=== PATIENT | female | born 1985 | race Caucasian/White ===

== ENCOUNTER 2023-04-14 13:18 | Outpatient (REF) | payer BC, SELFPAY ==
[2023-04-18 12:13] LABS: Age Gdln ACOG Testing Note (.); HPV Aptima Negative (Negative); IGP, Aptima HPV, rfx 16/18,45 Note (.)
== END 2023-04-14 13:19 | disposition home or self-care (01) ==
LOC: LAB 13:18
PROVIDERS: PCP Obstetrics & Gynecology; Visit Provider Obstetrics & Gynecology
DX: Z01.419 Encounter for gynecological examination (general) (routine) without abnormal findings (principal)
CPT/HCPCS: 87624; G0145

== ENCOUNTER 2024-04-20 12:58 | Outpatient (OUT) | payer BC, SELFPAY ==
[2024-04-20 13:19] LABS: Basophils Absolute Auto 0.1 10^3/uL (0.0-0.1); Basophils Percent Auto 0.8 % (0.2-2.0); Eosinophils Absolute Auto 0.1 10^3/uL (0.0-0.7); Eosinophils Percent Auto 0.6 % (0.9-7.0); Hematocrit 39.4 % (36.0-48.0); Hemoglobin 13.4 g/dL (12.0-16.0); Immature Granulocytes Abs Auto 0.02 10^3/uL (0.00-0.03); Immature Granulocytes Pct Auto 0.2 % (0.0-0.5); Lymphocytes Absolute Auto 2.7 10^3/uL (1.2-3.8); Mean Corpuscular Hemoglobin 29.6 pg (26.7-34.0); Mean Corpuscular Volume 87.2 fL (81.0-99.0); Mean Platelet Volume 9.2 fL (9.5-13.5); Monocytes Absolute Auto 0.5 10^3/uL (0.3-0.8); Neutrophils Absolute Auto 5.1 10^3/uL (1.4-6.5); Neutrophils Percent Auto 60.4 % (43.0-75.0); Platelet Count 321 10^3/uL (150-450); Red Blood Count 4.52 10^6/uL (4.20-5.40); Red Cell Distribution Width 12.3 % (11.0-15.0); White Blood Count 8.4 10^3/uL (4.0-11.0)
[2024-04-20 14:15] LABS: Free T4 0.94 ng/dL (0.76-1.46)
[2024-04-20 14:22] LABS: Thyroid Stimulating Hormone 1.341 uIU/mL (0.358-3.740)
[2024-04-20 14:23] LABS: HCG Quantitative <1 mIU/mL
[2024-04-20 19:10] LABS: Estimated Average Glucose 114 mg/dL; Glycohemoglobin A1C 5.6 % (4.5-6.2)
[2024-04-21 04:08] LABS: FSH 2.3 mIU/mL (.); Luteinizing Hormone(LH) 0.8 mIU/mL (.)
== END 2024-04-20 12:59 | disposition home or self-care (01) ==
LOC: LAB 13:00
PROVIDERS: PCP Obstetrics & Gynecology; Visit Provider Obstetrics & Gynecology
DX: E28.2 Polycystic ovarian syndrome (principal); N89.8 Other specified noninflammatory disorders of vagina; N93.9 Abnormal uterine and vaginal bleeding, unspecified
CPT/HCPCS: 36415; 82626; 82627; 83001; 83002; 83036; 84439; 84443; 84702; 85025

== ENCOUNTER 2024-04-22 11:01 | Outpatient (OUT) | payer BC, SELFPAY ==
--- NOTE | 2024-04-22 11:02 | US_ITS ---
[address] [address] Patient Name: ETHEL BRYANT MRN: [id number] date: 1985 Sex: F Assigned Patient Location: [facility] Current Patient Location: Accession/Order Number: [id number] Exam Date: 04/22/2024 11:05 Report Date: 04/23/2024 04:35 At the request of: MYRIAM STAPLETON Procedure: US pelvis w/ transvaginal EXAMINATION: US pelvis w/ transvaginal HISTORY: POLYCYSTIC OVARIAN SYNDROME COMPARISON: Ultrasound pelvis 07/27/2019 TECHNIQUE: Transabdominal and/or transvaginal sonographic examination was performed as indicated by examination type. FINDINGS: UTERUS: Normal size and appearance. Uterus size: 9.8 x 4.6 x 5.3 cm ENDOMETRIUM: Normal homogeneous appearance. IUD within endometrial cavity. Endometrial thickness: 6 mm RIGHT OVARY: Normal size and appearance. Duplex Doppler demonstrates normal waveform and flow; resistive index 0.5. Ovary size: 3.8 x 2.1 x 1.7 cm LEFT OVARY: Normal size and appearance. Duplex Doppler demonstrates normal waveform and flow; resistive index 0.6. Ovary size: 2.7 x 1.3 x 1.8 cm CUL-DE-SAC: Unremarkable. No significant free fluid. BLADDER: Unremarkable. OTHER: None. US/US pelvis w/ transvaginal IMPRESSION: 1. No ultrasound findings to suggest polycystic ovarian syndrome. 2. IUD within endometrial cavity. Electronically authenticated by: CRIS YEE Date: 04/23/2024 04:35
--- OUTSIDE RECORDS SUMMARY | 2024-04-22 11:16 | XMS_ITS | CCD ---
Author Organization [facility] CliniSynh Care Team Providers Care Major Appliance Assembly Supervisor Name Role Phone PIETER, DR MIGUEL Consulting Unavailable PIETER, DR MIGUEL Admitting Unavailable PIETER, DR MIGUEL Attending Unavailable MARIA DEL ROSARIO, DR DAVENPORT Primary Care Unavailable PIETER, DR MIGUEL Admitting Unavailable PIETER, DR MIGUEL Attending Unavailable MARIA DEL ROSARIO, DR DAVENPORT Primary Care Unavailable PIETER, DR MIGUEL Consulting Unavailable IPETER, DR MIGUEL Admitting Unavailable PIETER, DR MIGUEL Attending Unavailable MARIA DEL ROSARIO, DR DAVENPORT Primary Care Unavailable PIETER, DR MIGUEL Consulting Unavailable Maria Del Rosario [facility] Primary Care Provider [phone] SHAMAR RAZA Admitting Unavailable SHAMAR RAZA Attending Unavailable MARIA DEL ROSARIO [facility] Primary Care Unavailable SHAMAR RAZA Attending Unavailable SHAMAR RAAZ Referring Unavailable MARIA DEL ROSARIO [facility] Primary Care Unavailable ELICIA MCKENZIE Attending Unavailable MARIA DEL ROSARIO [facility] Primary Care Unavailable Amara TISSUE COORDINATOR-HAIR ASSISTANTDelgado Unavailable Maria Del Rosario [facility] Primary Care Provider Amara TISSUE COORDINATOR-HAIR ASSISTANTDelgado Unavailable DELGADO CARDONA Attending Unavailab MACRINA Parker Attending Unavailable MACRINA MONTES Attending Unavailable MYRIAM STAPLETON Referring Unavailable MACRINA MONTES Attending Unavailable MYRIAM STAPLETON Attending Unavailable DELGADO CARDONA Attending Unavailab NONA Barrientos Attending Unavailable MACRINA MONTES Attending Unavailable MACRINA MONTES Attending Unavailable DELGADO CARDONA Attending Unavailab NONA Barrientos Attending Unavailable MACRINA MONTES Attending Unavailable DELGADO CARDONA Attending Unavailab MACRINA Parker Attending Unavailable DELGADO CARDONA Attending Unavailab MACRINA Parker Attending Unavailable DELGADO CARDONA Attending Unavailab warren MIXNONA Attending Unavailable DELGADO CARDONA Attending Unavailab MACRINA Parker Attending Unavailable DELGADO CARDONA Attending Unavailab MYRIAM Luis Attending Unavailable Allergies Allergy Classification Reported Allergen(s) Allergy Type Date of Onset Reaction(s) Facility (1 source) Bacitracin / Neomycin / Polymyxin B Drug Allergy 2 [facility] Repository (2 sources) bacitracin / neomycin / polymyxin b; Translations: [NEOMYCIN-BACIT RACIN-POLYMYXIN ] Drug Allergy 6 Rash [facility] (8 sources) Neomycin Drug Allergy 2 Hives, Itching [facility] Work Phone: (1 source) Neomycin-Bacitr acin Zn-Polymyx Drug Intolerance 6 Rash [facility] Healthcare Medications Current Medications Medication Drug Class(es) Dates Sig (Normalized) Sig (Original) cetirizine hydrochloride 10 mg oral tablet (3 sources) Histamine-1 Receptor Antagonist Start: 02-25-2024 End: 08-23-2024 take 1 tablet by mouth once daily cetirizine (ZyrTEC) 10 MG tablet Indications: Rash Take 1 tablet (10 mg) by mouth Daily 30 tablet 02/25/2024 03/16/2024 Discontinued (Therapy completed) copper 313 mg drug implant (9 sources) Copper-containing Intrauterine Device copper (Paragard) IUD by Intrauterine route 1 (one) time. Active copper (PARAGARD T 380A) 380 square mm intrauterine device IUD by intrauterine route. 0 Active desogestrel 0.15 mg / ethinyl estradiol 0.03 mg oral tablet (8 sources) Progestin, Estrogen Start: 09-29-2023 take 1 tablet by mouth once daily, then take 1 tablet by mouth once daily desogestrel-ethinyl estradiol (Apri) 0.15-30 MG-MCG tablet Indications: Hormone imbalance Take 1 tablet by mouth Daily for 28 days Take 1 tablet by mouth daily 28 tablet 11 09/29/2023 Active lamoTRIgine 150 mg oral tablet (11 sources) Mood Stabilizer, Anti-epileptic Agent Start: 01-05-2024 End: 05-14-2024 take 1 tablet by mouth in the morning lamoTRIgine (LaMICtal) 150 MG tablet Indications: Bipolar disorder in partial remission, most recent episode unspecified type (CMS/HCC) Take 1 tablet (150 mg) by mouth in the morning and 1 tablet (150 mg) before bedtime. 60 tablet 2 04/14/2024 05/14/2024 Active Start: 02-19-2023 take 1 tablet by mango th in the morning, then take 1 tablet by mouth at bedtime lamoTRIgine (LaMICtal) 150 mg tablet Take 1 tablet (150 mg total) by mouth in the morning and 1 tablet (150 mg total) before bedtime. 0 02/19/2023 Active lisdexamfetamine dimesylate 30 mg oral capsule (12 sources) Central Nervous System Stimulant Start: 04-14-2024 End: 05-14-2024 take 1 capsule by mouth in the morning lisdexamfetamine (Vyvanse) 30 MG capsule Indications: Moderate binge-eating disorder Take 1 capsule (30 mg) by mouth in the morning. 30 capsule 04/14/2024 05/14/2024 Active Start: 03-16-2024 End: 04-15-2024 take 1 capsule by mouth in the morning lisdexamfetamine (Vyvanse) 40 MG capsule Indications: Moderate binge-eating disorder Take 1 capsule (40 mg) by mouth in the morning. 30 capsule 03/16/2024 04/14/2024 Discontinued Start: 02-02-2024 End: 03-16-2024 take 1 capsule by mouth in the morning lisdexamfetamine (Vyvanse) 30 MG capsule Indications: Binge eating disorder Take 1 capsule (30 mg) by mouth in the morning. 30 capsule 02/02/2024 03/16/2024 Discontinued lurasidone hydrochloride 40 mg oral tablet (11 sources) Atypical Antipsychotic Start: 12-01-2023 End: 05-14-2024 take 1 tablet by mouth at mealtime lurasidone (Latuda) 40 MG tablet Indications: Bipolar disorder, current episode mixed, moderate (CMS/HCC) Take 1 tablet (40 mg) by mouth in the evening. Take with meals 30 tablet 2 04/14/2024 05/14/2024 Active Start: 10-16-2020 take 1 tablet by mango th once daily LATUDA 40 mg tablet Take 1 tablet (40 mg total) by mouth nightly. 0 10/16/2020 Active polyethylene glycol 3350 170 00 mg powder for oral solution (9 sources) Osmotic Laxative polyethylene gl ycol, PEG, 3350 (Glycolax) 17 GM/SCOOP powder Take 34 g by mouth if needed Active polyethylene gly col (GLYCOLAX) 17 gram/dose powder Take 17 g by mouth in the morning. 0 Active triamcinolone acetonide 1 mg/ml topical cream (3 sources) Corticosteroid Start: 02-25-2024 End: 03-16-2024 triamcinolone (Kenalog) 0.1 % cream Indications: Rash Apply topically 2 (two) times a day 60 g 02/25/2024 03/16/2024 Discontinued (Therapy completed) Problems Active Problems Problem Classification Problem Date Documented Da te Episodic/Chronic Adjustment disorders (8 sources) Adjustment disorder; Translations: [Adjustment disorder, unspecified] Onset: 02-25-2024 02-25-2024 Chronic Anxiety disorders (8 sources) Panic attack; Translations: [Panic disorder [episodic paroxysmal anxiety]] Onset: 10-15-2022 10-15-2022 Chronic Miscellaneous mental health disorders (20 sources) Binge eating disorder; Translations: [Binge eating disorder] Onset: 10-30-2023 10-30-2023 Chronic Mood disorders (14 sources) Bipolar disorder; Translations: [Bipolar disorder, unspecified] Onset: 10-15-2022 10-15-2022 Chronic Other diseases of veins and lymphatics (9 sources) Venous hypertension; Translations: [Chronic venous hypertension (idiopathic) without complications of unspecified lower extremity] Onset: 01-08-2021 01-08-2021 Chronic Other endocrine disorders (4 sources) Endocrine disorder, unspecified; Translations: [ENDOCRINE DISORDER UNSPECIFIED] Onset: 12-13-2021 Episodic Other gastrointestinal disorders (8 sources) Chronic constipation; Translations: [Other constipation] Onset: 02-25-2024 02-25-2024 Episodic Other nervous system disorders (8 sources) Difficulty walking; Translations: [Difficulty in walking, not elsewhere classified] Onset: 02-25-2024 02-25-2024 Chronic Residual codes; unclassified (4 sources) Decreased libido; Translations: [DECREASED LIBIDO] Onset: 11-07-2021 Episodic Residual codes; unclassified (1 source) Family history of malignant neoplasm of digestive organs; Translations: [Family history of malignant neoplasm of digestive organs] Onset: 06-26-2023 Episodic Unclassified (1 source) family history of colon cancer Onset: 06-26-2023 Viral infection (8 sources) Plantar wart of right foot; Translations: [Plantar wart] Onset: 02-25-2024 02-25-2024 Episodic Past or Other Problems Problem Classification Problem Date Documented Date Episodic/Chronic Contraceptive and procreative management (8 sources) Intrauterine contraceptive device in situ; Translations: [Presence of (intrauterine) contraceptive device] Onset: 08-25-2023 08-25-2023 Episodic Immunizations and screening for infectious disease (1 source) Encounter for screening for human papillomavirus (HPV); Translations: [ENC SCREENING HUMAN PAPILLOMAVIRUS] Onset: 08-01-2021 Episodic Other aftercare (8 sources) Taking high risk medication; Translations: [Other shelter (current) drug therapy] Onset: 10-15-2022 10-15-2022 Episodic Other endocrine disorders (8 sources) Disorder of endocrine system; Translations: [Endocrine disorder, unspecified] Onset: 08-25-2023 08-25-2023 Episodic Other female genital disorders (8 sources) Vaginal dryness; Translations: [Other specified noninflammatory disorders of vagina] Onset: 08-25-2023 08-25-2023 Episodic Other screening for suspected conditions (not mental disorders or infectious disease) (4 sources) Encounter for screening for malignant neoplasm of cervix; Translations: [ENC SCREENING MALIG NEOPLASM CERV] Onset: 07-31-2021 Episodic Other skin disorders (8 sources) Disorder of sweat gland; Translations: [Eccrine sweat disorder, unspecified] Onset: 08-25-2023 08-25-2023 Episodic Residual codes; unclassified (9 sources) History of surgical procedure on vein; Translations: [Other specified postprocedural states] Onset: 02-23-2021 02-23-2021 Episodic Varicose veins of lower extremity (9 sources) Varicose veins of lower limb co-occurrent with edema; Translations: [Varicose veins of left lower extremity with other complications] Onset: 10-23-2020 10-23-2020 Episodic Results Test Name Value Interpretation Reference Range Facility HCG ( test) Ql (U)o n 06-26-2023 Beta HCG ( test) Ql (U) Negative Normal NEG [facility] Comment on above: Performed By: #### 2 106-3 #### [facility] ([id number]) [address] [facility] [place] [address] BI MAMMOGRAM SCREENING TOMOS YNTHESIS BILATERALon 04-29-2023 BI MAMMOGRAM SCREENING TOMOSYNTHESIS BILATERAL This is a summary report. The complete report is available in the patient's medical record. If you cannot access the medical record, please contact the sending organization for a detailed fax or copy. EXAMINATION: BI MAMMOGRAM SCREENING TOMOSYNTHESIS BILATERAL CLINICAL HISTORY: screening COMPARISON: There are no previous mammograms available for comparison. RESULT: Digital mammography and 3D tomosynthesis of bilateral breasts was performed. There are scattered areas of fibroglandular density. There is no suspicious mass, asymmetry, architectural distortion, or calcification. IMPRESSION: BIRADS 1 - Negative. Follow-up: Routine Screening Mamm . Board Certified Radiologists. Accredited by the ACR and FDA. MAMMOGRAPHY IS VERY IMPORTANT TO YOUR HEALTH. THE [employer] GUIDELINES RECOMMEND THAT WOMEN 40 YEARS OF AGE AND OLDER SHOULD HAVE A MAMMOGRAM EVERY YEAR. A REMINDER LETTER WILL BE SENT AT THE APPROPRIATE TIME. THIS FACILITY UTILIZES A REMINDER SYSTEM TO ENSURE ALL PATIENTS RECEIVE REMINDER NOTIFICATIONS AT THE APPROPRIATE TIME BASED ON THE RECOMMENDATIONS OF THIS EXAM. THIS INCLUDES REMINDERS FOR ROUTINE SCREENING MAMMOGRAMS, DIAGNOSTIC MAMMOGRAMS IN WHICH THE PATIENT IS ASKED TO RETURN FOR ADDITIONAL VIEWS, OR OTHER BREAST IMAGING INTERVENTIONS WHEN APPROPRIATE. THE PATIENT WILL BE PLACED IN THE APPROPRIATE REMINDER SYSTEM INCLUDING A REMINDER AT THE APPROPRIATE TIME FOR ANY PENDING ADDITIONAL VIEWS. TRANSCRIBED BY: ELECTRONICALLY SIGNED BY: Jacob Isaac MD Normal Not Available CORTISOL FREE, SERUMon 12-21 Cortisol, Free Dialysis, LCMS 1.06 ug/dL Normal [facility] Comment on above: Result Comment: Thes e tests were developed and their performance characteristics determined by [facility]. They have not been cleared or approved by the Food and Drug Administration. Reference Range: 8 AM 0.10 - 1.20 4 PM 0.042 - 0.872 Performed By: #### F RECORT #### [facility] [address] [place] [address] Dr. Lawanda Bentley VIT D 1 25 DIHYDROXYon 12-19 Calcitriol(1,25 di-OH Vit D) 72.9 pg/mL Normal 24.8-81.5 [facility] Comment on above: Result Comment: Pl ease note reference interval change Performed By: #### V [id number] #### [facility] [address] [place] [address] Dr. Lawanda Bentley INSULINon 12-14-2021 Insulin 20.1 uIU/mL Normal 2.6-24.9 [facility] Comment on above: Performed By: #### F RECORT #### [facility] [address] [place] [address] Dr. Lawanda Bentley GLUCOSE BLOODon 12-13-2021 Glucose [Mass/Vol] 107 mg/dL Critically high 74-106 T [facility] Comment on above: Performed By: #### G SHELIA #### [facility] [address] [place] [address] Dr. Lawanda Bentley GLYCOHEMOGLOBIN A1Con 2021 ADA RECOMMENDATION SEE BELOW Normal [facility] Comment on above: Result Comment: ADA RECOMMENDED LIMIT 4.0 - 6.0 ADA THERAPEUTIC TARGET < 7.0 ACTION SUGGESTED > 7.0 Performed By: #### A 1C #### [facility] [address] [place] [address] Dr. Lawanda Bentley Glucose [Mass/Vol] 108 mg/dL Normal [facility] Comment on above: Performed By: #### A 1C #### [facility] [address] [place] [address] Dr. Lawanda Bentley HbA1c (Bld) [Mass fraction] 5.4 % Normal 4.5-6.2 [facility] Comment on above: Performed By: #### A 1C #### [facility] [address] [address] [address] Lawanda Bentley TESTOSTERONE, FREE,DIRECT, T OTALon 11-10-2021 Free Testosterone(Direct) 4.0 pg/mL Normal 0.0-4.2 [facility] Comment on above: Result Comment: Perf ormed at: BN Performed By: #### T ESTFRD #### [facility] [address] [address] [address] Lawanda Bentley Testosterone [Mass/Vol] 40 ng/dL Normal 8-60 [facility] Comment on above: Result Comment: Perf ormed at: CB Performed By: #### T ESTFRD #### [facility] [address] [place] [address] Dr. Lawanda Bentley ESTRONEon 11-09-2021 Estrone, Serum 118 pg/mL Normal 27-231 [facility] Comment on above: Result Comment: Rang e Adult (Premenopausal) 27 - 231 Menstrual Cycle (1-10 days) 19 - 149 Menstrual Cycle (11-20 days) 32 - 176 Menstrual Cycle (21-30 days) 37 - 200 Performed By: #### E STRONE #### [facility] [address] [place] [address] Dr. Lawanda Bentley VIT D 1 25 DIHYDROXYon 11-09 Calcitriol(1,25 di-OH Vit D) 98.8 pg/mL Critically high 19.9-79.3 [facility] Comment on above: Result Comment: Ef fective November 12, 2021 Calcitriol(1,25 di-OH Vit D) reference interval will be changing to: pg/mL . 0 - 6 months: 44.3 - 212.9 7 months - 1 year: 40.3 - 112.4 >1 year: 24.8 - 81.5 Performed By: #### V [id number] #### [facility] [address] [place] [address] Dr. Lawanda Bentley CORTISOLon 11-08-2021 Cortisol 8.9 ug/dL Normal [facility] Comment on above: Result Comment: Brent isol AM 6.2 - 19.4 Cortisol PM 2.3 - 11.9 Performed By: #### F RECORT #### [facility] [address] [place] [address] Dr. Lawanda Bentley DHEA-SULFATEon 11-08-2021 DHEA-Sulfate 415.0 ug/dL Critically high 57.3-279.2 [facility] Comment on above: Performed By: #### D DANE #### [facility] [address] [place] [address] Dr. Lawanda Bentley ESTRADIOLon 11-08-2021 Estradiol 87.8 pg/mL Normal [facility] Comment on above: Result Comment: Adul t Female: Follicular phase 12.5 - 166.0 Ovulation phase 85.8 - 498.0 Luteal phase 43.8 - 211.0 Postmenopausal <6.0 - 54.7 1st trimester 215.0 - >4300.0 Shell ECLIA methodology Performed By: #### E STRADI #### [facility] [address] [place] [address] Dr. Lawanda Bentley PROGESTERONEon 11-08-2021 Progesterone 2.5 ng/mL Normal [facility] Comment on above: Result Comment: Foll icular phase 0.1 - 0.9 Luteal phase 1.8 - 23.9 Ovulation phase 0.1 - 12.0 First trimester 11.0 - 44.3 Second trimester 25.4 - 83.3 Third trimester 58.7 - 214.0 Postmenopausal 0.0 - 0.1 Performed By: #### F RECORT #### [facility] [address] [place] [address] Dr. Lawanda Bentley SEX HORMONE-BINDING GLOBULIN on 11-08-2021 Sex Horm Binding Glob, Serum 27.5 nmol/L Normal 24.6-122.0 [facility] Comment on above: Performed By: #### S EXHBG #### [facility] [address] [place] [address] Dr. Lawanda Bentley PAP ACOG PANEL 2: 30 to 65on 08-03-2021 . . Normal [facility] Comment on above: Result Comment: Perf ormed at: WB Performed By: #### F RECORT #### [facility] [address] [place] [address] Dr. Lawanda Bentley Age Gdln ACOG Testing 30-65 Normal [facility] Comment on above: Performed By: #### F RECORT #### [facility] [address] [place] [address] Dr. Lawanda Bentley DIAGNOSIS: Comment Normal [facility] Comment on above: Result Comment: NEGA TIVE FOR INTRAEPITHELIAL LESION OR MALIGNANCY. Performed at: WB Performed By: #### F RECORT #### [facility] [address] [place] [address] Dr. Lawanda Bentley HPV Aptima Negative Normal Negative [facility] Comment on above: Result Comment: This nucleic acid amplification test detects fourteen high-risk HPV types (16,18,31,33,35,39,45,51,52,56,58,59,66,68) without differentiation. Performed at: =G Performed By: #### F RECORT #### [facility] [address] [place] [address] Dr. Lawanda Bentley Methodology: Comment Normal [facility] Comment on above: Result Comment: This liquid based ThinPrep(R) pap test was screened with the use of an image guided system. Performed at: WB Performed By: #### F RECORT #### [facility] [address] [place] [address] Dr. Lawanda Bentley Note: Comment Normal [facility] Comment on above: Result Comment: The Pap smear is a screening test designed to aid in the detection of premalignant and malignant conditions of the uterine cervix. It is not a diagnostic procedure and should not be used as the sole means of detecting cervical cancer. Both false-positive and false-negative reports do occur. . Performed at: WB Performed By: #### F RECORT #### [facility] [address] [address] [address] Lawanda Bentley Performed by: Comment Normal [facility] Comment on above: Result Comment: Ada Bucio, Countersinker (ASCP) Performed at: WB Performed By: #### F RECORT #### [facility] [address] [address] [address] Lawanda Bentley Specimen adequacy: Comment Normal [facility] Comment on above: Result Comment: Sati sfactory for evaluation. Endocervical and/or squamous metaplastic cells (endocervical component) are present. Performed at: WB Performed By: #### F RECORT #### [facility] [address] [place] [address] Dr. Lawanda Bentley Vital Signs Date Time Vital Sign Value Performing Clinician Khalida smith 04-14-2024 11:04-0500 Body mass index (BMI) [Ratio] 32.42 kg/m2 Delgado Brenda-Nossek TISSUE COORDINATOR-HAIR ASSISTANT Work Phone: [facility] 04-14-2024 11:04-0500 Body weight 83.01 kg Delgado Brenda-Nossek TISSUE COORDINATOR-HAIR ASSISTANT Work Phone: [facility] 04-14-2024 11:04-0500 Diastolic blood pressure 86 mm[Hg] Delgado Brenda-Nossek TISSUE COORDINATOR-HAIR ASSISTANT Work Phone: [facility] 04-14-2024 11:04-0500 Systolic blood pressure 134 mm[Hg] Delgado Brenda-Nossek TISSUE COORDINATOR-HAIR ASSISTANT Work Phone: [facility] 03-16-2024 09:29-0400 Body mass index (BMI) [Ratio] 32.77 kg/m2 Delgado Brenda-Nossek TISSUE COORDINATOR-HAIR ASSISTANT Work Phone: [facility] 03-16-2024 09:29-0400 Body weight 83.92 kg Delgado Brenda-Nossek TISSUE COORDINATOR-HAIR ASSISTANT Work Phone: [facility] 03-16-2024 09:29-0400 Diastolic blood pressure 84 mm[Hg] Delgado Brenda-Nossek TISSUE COORDINATOR-HAIR ASSISTANT Work Phone: [facility] 03-16-2024 09:29-0400 Heart rate 73 /min Delgado Brenda-Nossek TISSUE COORDINATOR-HAIR ASSISTANT Work Phone: [facility] 03-16-2024 09:29-0400 Systolic blood pressure 132 mm[Hg] Delgado Brenda-Nossek TISSUE COORDINATOR-HAIR ASSISTANT Work Phone: [facility] Encounters Encounter Date Encounter Type Care Provider Facility Start: 04-20-2024 End: 04-20-2024 ambulatory MYRIAM STAPLETON Not Available Start: 04-14-2024 End: 04-14-2024 ambulatory DELGADO Hurd BRENDA-NOSSEK Not Available Start: 04-14-2024 End: 04-14-2024 Office outpatient visit 40 minutes Delgado Hurd Brenda-Nossek TISSUE COORDINATOR-HAIR ASSISTANT Work Phone: [facility] Comment on above: Bipolar disorder in partial remission, most recent episode unspecified type (CMS/HCC); Bipolar disorder, current episode mixed, moderate (CMS/HCC); Moderate binge-eating disorder Start: 03-18-2024 End: 03-18-2024 Bamboo flowsheet Macrina S [place] CASE REPAIRER-S Work Phone: [facility] Start: 03-18-2024 End: 03-18-2024 Bamboo flowsheet Macrina S Simon CASE REPAIRER-S Work Phone: [facility] Start: 03-18-2024 End: 03-18-2024 ambulatory MACRINA S SIMON Not Available Start: 03-16-2024 End: 03-16-2024 Bamboo flowsheet Delgado M Brenda-Nossek TISSUE COORDINATOR-HAIR ASSISTANT Work Phone: [facility] Start: 03-16-2024 End: 03-16-2024 Bamboo flowsheet Delgado Hurd Brenda-Nossek TISSUE COORDINATOR-HAIR ASSISTANT Work Phone: [facility] Start: 03-16-2024 End: 03-16-2024 Office outpatient visit 40 minutes Delgado Hurd Brenda-Nossek TISSUE COORDINATOR-HAIR ASSISTANT Work Phone: [facility] Comment on above: Moderate binge-eatin g disorder (Primary Dx) Start: 03-16-2024 End: 03-16-2024 ambulatory DELGADO Hurd BRENDA-NOSSEK Not Available Start: 02-25-2024 End: 02-25-2024 ambulatory NONA MIX Not Available Start: 02-02-2024 End: 02-02-2024 ambulatory DELGADO Vannessa BRENDA-NOSSEK Not Available Start: 01-19-2024 End: 01-19-2024 ambulatory MACRINA S SIMON Not Available Start: 01-05-2024 End: 01-05-2024 ambulatory DELGADO Vannessa BRENDA-NOSSEK Not Available Start: 12-01-2023 End: 12-01-2023 ambulatory DELGADO M BRENDA-NOSSEK Not Available Start: 11-13-2023 End: 11-13-2023 ambulatory MACRINA S SIMON Not Available Start: 11-10-2023 End: 11-10-2023 ambulatory NONA MIX Not Available Start: 10-30-2023 End: 10-30-2023 ambulatory DELGADO M BRENDA-NOSSEK Not Available Start: 10-29-2023 End: 10-29-2023 ambulatory MACRINA S SIMON Not Available Start: 10-15-2023 End: 10-15-2023 ambulatory MACRINA S SIMON Not Available Start: 10-07-2023 End: 10-07-2023 ambulatory NONA MIX Not Available Start: 09-18-2023 End: 09-18-2023 ambulatory DELGADO Vannessa BRENDA-NOSSEK Not Available Start: 08-25-2023 End: 08-25-2023 ambulatory MYRIAM STAPLETON Not Available Start: 08-06-2023 End: 08-06-2023 ambulatory MACRINA S SIMON Not Available Start: 07-07-2023 End: 07-07-2023 ambulatory MACRINA S SIMON Not Available Start: 07-03-2023 Telephone encounter Shara Aguilera [facility] General Surgery Start: 06-27-2023 End: 06-27-2023 Evaluation and management of inpatient ELICIA MCKENZIE [facility] Start: 06-26-2023 End: 06-27-2023 Evaluation and management of inpatient SHAMAR RAZA [facility] Start: 06-20-2023 End: 06-20-2023 ambulatory DELGADO Vannessa BRENDA-NOSSEK Not Available Start: 05-26-2023 End: 05-26-2023 ambulatory MACRINA MONTES Not Available Start: 04-29-2023 End: 04-29-2023 ambulatory MYRIAM STAPLETON Not Available Start: 04-29-2023 End: 04-29-2023 ambulatory MACRINA MONTES Not Available Start: 12-13-2021 End: 12-14-[address] MYRIAM STAPLETON Facility:[facility] Start: 11-07-2021 End: 11-08-[address] MYRIAM STAPLETON Facility:[facility] Start: 07-31-2021 End: 07-31-[address] MYRIAM STAPLETON Facility:[facility] Procedures Date Procedure Procedure Detail Performing Clinician Start: 03-18-2024 End: 03-18-2024 Psychotherapy w/patient 60 minutes Moderate binge-eating disorder Macrina Montes CASE REPAIRER-S Work Phone: Comment on above: Moderate binge-eatin g disorder; Bipolar affective disorder, remission status unspecified ([facility]) Start: 04-29-2023 Mammography [facility]gado Sherwood [facility] Work Phone: Start: 04-14-2023 Microscopic observat ion [Identifier] in Cervix by Cyto stain Delgado Cardona [facility] Work Phone: Plan of Treatment Date Care Activity Detail Author Start: 04-14-2028 Screening for malign ant neoplasm of cervix [facility] Start: 12-06-2024 Influenza vaccination Influenza Vacc ine (#1) [facility] Comment on above: Postponed from 02/07 (Patient Refused) Start: 06-26-2024 Adult BMI Screening [facility] Screen [facility] Start: 06-26-2024 Tobacco Screening Tobacco Screening [facility] Start: 06-14-2024 End: 06-14-2024 Patient encounter procedure 06/14/2024 9:30 AM EST Office Visit [facility] [address] [facility] [address] [place] [address] Delgado Cardona TISSUE COORDINATOR-[facility] [address] [facility] [address] [place] [address] [facility] Start: 04-29-2024 Screening for malign ant neoplasm of breast Mammogram [facility] Start: 04-14-2024 End: 04-14-2024 Patient encounter procedure 04/14/2024 11:00 AM EST Office Visit [facility] [address] [facility] [address] [place] [address] Delgado Cardona, TISSUE COORDINATOR-HAIR ASSISTANT [address] [facility] [address] [place] [address] [facility] Start: 04-14-2024 End: 04-14-2024 Telemedicine consultation with patient 04/14/2024 9:00 AM EST Telemedicine [facility] [address] [place] [place] [address] Macrina Montes, CASE REPAIRER-S [address] [place] [facility] [place] [address] [facility] Start: 03-18-2024 End: 03-18-2024 Telemedicine consultation with patient [facility] Comment on above: Arrived Start: 03-16-2024 End: 03-16-2024 Patient encounter procedure 03/16/2024 9:30 AM EDT Office Visit [facility] [address] [facility] [address] [place] [address] Delgado Cardona, TISSUE COORDINATOR-HAIR ASSISTANT [address] [facility] [address] [place] [address] Arrived [facility] Comment on above: Arrived Start: 02-07-2023 COVID-19 Vaccine ( season) COVID-19 Vaccine ( season) [facility] Start: 02-07-2023 Influenza vaccination Influenza Vacc ine [facility] Start: 2004 Screening for malign ant neoplasm of cervix Pap Smear [facility] Start: 2002 DTaP,Tdap and Td Vaccines (1 - Tdap) DTaP,Tdap and Td Vaccines (1 - Tdap) [facility] Start: 2001 Adult BMI Follow Up Plan Adult BMI Follow Up Plan [facility] Start: 1995 Depression Screening Depression Scre ening [facility] Immunizations Immunization Date Immunization Notes Care Provider Michael castellanos 03-31-2020 influenza, injectabl e, quadrivalent, preservative free Delgado Brenda-Nossek TISSUE COORDINATOR-HAIR ASSISTANT Work Phone: [facility] 03-31-2020 influenza virus vaccine, unspecified formulation Shara Aguilera CMA [facility] 04-08-2017 influenza, injectabl e, quadrivalent, contains preservative Delgado Brenda-Nossek TISSUE COORDINATOR-HAIR ASSISTANT Work Phone: [facility] 04-04-2016 influenza, injectabl e, quadrivalent, preservative free Delgado Brenda-Nossek TISSUE COORDINATOR-HAIR ASSISTANT Work Phone: [facility] Healthcare Payers Date Payer Category Payer [facility] [id number] 2021 Unknown [id number]. [id number] 1983 Unknown [id number] 2.16.840.1.301297.3.579. 2.593 1983 Unknown [id number] 2.16.840.1.724955.3.579. 2.593 1983 Unknown [id number] 2.16.840.1.325687.3.579. 2.593 1983 Unknown [id number] .840.1.484833.3.579. 2.1285 1983 Unknown [id number] 2.840.1.059666.3.579. 2.1285 1983 Unknown [id number] 2.840.1.989190.3.579. 2.1285 1983 Unknown [id number] 2.840.1.313631.3.579. 2.1285 1983 Unknown [id number] 840.1.385122.3.579. 2.1258 1983 Unknown [id number] 20.1.929169.3.579. 2.1258 1983 Unknown [id number] 07.25.830.1.843625.3.579. 2.1258 1983 Unknown [id number] 07.25.830.1.794785.3.579. 2.1258 1983 Unknown [id number] .1.413241.3.579. 2.1258 1983 Unknown [id number] 07.25.830.1.792749.3.579. 2.1258 1983 Unknown [id number] 07.25.830.1.614967.3.579. 2.1258 1983 Unknown [id number] 07.25.830.1.474965.3.579. 2.1258 1983 Unknown [id number] 840.1.889665.3.579. 2.1258 1983 Unknown [id number] 840.1.818409.3.579. 2.1258 1983 Unknown [id number] 840.1.921219.3.579. 2.1258 1983 Unknown [id number] 840.1.969422.3.579. 2.1259 1983 Unknown [id number] 2.16.840.1.722959.3.579. 2.1258 1983 Unknown [id number] 2.16.840.1.076958.3.579. 2.1258 1983 Unknown [id number] 2.16.840.1.386595.3.579. 2.1258 1983 Unknown [id number] 2.16.840.1.486538.3.579. 2.1258 1983 Unknown [id number] 2.16.840.1.634753.3.579. 2.1258 1983 Unknown [id number] 2.16.840.1.765969.3.579. 2.1258 1983 Unknown [id number] 2.16.840.1.107036.3.579. 2.1258 1983 Unknown [id number] 2.16.840.1.626749.3.579. 2.1258 1983 Unknown [id number] 2.16.840.1.502372.3.579. 2.1258 1983 Unknown [id number] 2.16.840.1.847672.3.579. 2.1258 1983 Unknown [id number] 2.16.840.1.172650.3.579. 2.9 1959 Unknown [id number] 1959 Unknown [id number] Social History Date Type Detail Facility Start: 05-19-2023 End: 12-01-2023 Tobacco smoking status ARIS Ex-smoker [facility] [employer] Work Phone: Start: 06-09-2001 End: 10-07-2008 History of tobacco use [email or web address] Start: 06-09-2001 End: 10-07-2008 History of tobacco use [facility]igarette [facility] Start: 05-19-2023 End: 11-09-2023 Cigarettes smoked current (pack per day) - Reported 1 [facility] Start: 05-19-2023 End: 12-01-2023 Tobacco use and exposure Smokeless tobacco non-user [facility] Start: 06-30-2023 Alcohol intake Ex-drinker (finding) [facility] Start: 06-26-2023 End: 11-09-2023 Tobacco use panel [facility] Unknown [facility] Start: 05-19-2023 Tobacco Comment Social [facility] Start: 1985 Sex Assigned At Not on file [facility] Start: 02-25-2024 End: 04-14-2024 Alcoholic beverage intake Current drinker of alcohol (finding) [facility] Do you belong to any clubs or organizations such as latter day groups, unions, fraternal or athletic groups, or school groups? Yes [facility] Are you now , , , , never or living with a partner? [facility] How often to you hav e a drink containing alcohol? Monthly or less [facility] How many standard dr inks containing alcohol do you have on a typical day? 1 or 2 [facility] How often do you hav e 6 or more drinks on 1 occasion? Never [facility] How hard is it for y ou to pay for the very basics like food, housing, medical care, and heating Not very hard [facility] Do you feel stress - tense, restless, nervous, or anxious, or unable to sleep at night because your mind is troubled all the time - these days [OSQ] Only a little [facility] In the past 12 month s, was there a time when you were not able to pay the mortgage or rent on time? No [facility] Start: 12-06-2022 Education 18 [facility] Start: 12-01-2023 End: 03-16-2024 Alcohol Comment Not every week [facility] Start: 04-14-2024 Alcohol Comment caffiene- rand om- binges [facility] History of Present illness Narrative 04-14-2024 Delgado Cardona, PIERRE-HAIR ASSISTANT - 04/14/2024 11:00 AM EST Note Date & Type Note Facility 04-14-2024 History of Presen t illness Narrative Images from the original note were not included. Nona Bryant is a 39 y.o. female presents for Medication Management. HPI: Patient is here for medication follow up. Patient has improved since last appt. Does not like the side effects of vyvanse at 40mg. Does feel it has been helpful with BED and is occurring less. Mood is reported as not depressed. Anxiety is undercontrol. Feels that the bingeing is related to getting out or having a reason to stop and get fast food. Tracking food- consuming 2500 - 3000, was previously worse. Occurring I day every 10 days. Otherwise on non binge days 2000 regina. Would like to go go back to 30mg po every day on vyvanse. Feels like its too much and was feeling jittery. Medication compliant. Denies abuse of substances. Medical problems since last visit. Psychosocial stressors include daughter going to new school. SUBJECTIVE: PAST MEDICAL HISTORY: Past Medical History: Diagnosis Date Binge eating disorder Bipolar 1 disorder (CMS/HCC) Depressed (CMS/HCC) Gestational diabetes H/O rectal polypectomy 2011 Hx of section Hx of colonoscopy 2005,2011,2016 Hypertension (CMS/HCC) 12/19/10 only Irritable bowel syndrome with both constipation and diarrhea Panic attack (CMS/HCC) ALLERGIES: Allergies Allergen Reactions Neomycin Hives and Itching SURGICAL HISTORY: Past Surgical History: Procedure Laterality Date SECTION, LOW TRANSVERSE 06/03/2014, 12/19/2010 COLONOSCOPY 2005, 01/2012, 10/2016 COLONOSCOPY 06/2023 IR ABLATION VEIN RFA 02/13/2021 IR ABLATION VEIN RFA FAMILY HISTORY: Family History Problem Relation Name Age of Onset Atrial fibrillation Mother Marce Diabetes Mother Marce Thyroid disease Mother Marce Parkinsonism Mother Marce Stroke Mother Marce Other (chronic inflammatory demyelinating polyneuropathy) Mother Marce Depression Mother Marce Coronary artery disease Father Hussain Weinberg Depression Father Hussain Weinberg Cholelithiasis Father Hussain Weinberg Atrial fibrillation Father Hussain Weinberg Thyroid disease Father Hussain Weinberg Parkinsonism Father Hussain Weinberg Other (noncancerous brain tumor) Father Hussain Weinberg agent orange exposure Other (htn) Father Hussain Weinberg Alcohol abuse Father Hussain Weinberg Skin cancer Maternal Grandfather Colon cancer Maternal Grandfather SOCIAL HISTORY: Social History Tobacco Use Smoking status: Former Current packs/day: 0.00 Average packs/day: 1.5 packs/day for 7.3 years (11.0 ttl pk-yrs) Types: Cigarettes Start date: 06/09/2001 Quit date: 10/07/2008 Years since quittin.5 Smokeless tobacco: Never Vaping Use Vaping status: Never Used Substance Use Topics Alcohol use: Yes Alcohol/week: 1.0 standard drink of alcohol Types: 1 Standard drinks or equivalent per week Comment: Not every week Drug use: Never Depression: Not at risk (03/16/2024) PHQ-2 PHQ-2 Score: 1 REVIEW OF SYMPTOMS - MENTAL STATUS EXAM Appearance Appearance: Casual dress, normal grooming and hygiene Attitude Attitude: Cooperative, conversant, engaged, and with good eye contact. Behavior Cooperative, conversant, engaged, and with good eye contact. Speech Normal, clear, regular rate, rhythm and volume Affect full affect appropriate with mood Mood euthymic Thought Process Organized and Clear Thought Content No Suicidal Ideation and No Homicidal ideation Perception No perceptual abnormalities noted Orientation Appropriate to age, Person, Place, and Time Memory/Concentration Short term intact and shelter intact Insight/Judgement Good OBJECTIVE: Visit Vitals Smoking Status Former Lab Results Component Value Date TSH 1.10 10/28/2022 Lab Results Component Value Date GLU 145 (H) 10/07/2023 CALCIUM 9.2 10/07/2023 NA 134 (L) 10/07/2023 K 4.0 10/07/2023 CO2 23 10/07/2023 CL 103 10/07/2023 BUN 11 10/07/2023 CREATININE 0.65 10/07/2023 Lab Results Component Value Date WBC 8.4 10/07/2023 HGB 13.2 10/07/2023 HCT 39.8 10/07/2023 MCV 90.0 10/07/2023 PLT 318 10/07/2023 Lab Results Component Value Date CHOL 210 (H) 10/07/2023 CHOL 216 (H) 10/28/2022 Lab Results Component Value Date HDL 57 10/07/2023 HDL 47 (L) 10/28/2022 Lab Results Component Value Date LDLCALC 110 (H) 10/07/2023 LDLCALC 138 (H) 10/28/2022 Lab Results Component Value Date TRIG 326 (H) 10/07/2023 TRIG 173 (H) 10/28/2022 ASSESSMENT AND PLAN: Assessment/Plan Binge eating disorder (CMS/HCC)F50.819 Bipolar affective disorder, remission status unspecified ([facility]) High risk medication use Psych Medication List Lamictal 150mg bid -mood Decrease vyvanse 30mg po daily -target BED- 40mg made patient too jittery. Latuda 40mg daily -target depressed mood Refer to geochemist regarding BED -Patient discussed concerns regarding family hx of Diabetes, and food addiction. Patient was seen Face to Face, Reviewed chart documents and documentation, Visit time : 40min F/U 2 months. documented in this encounter [facility] History of Present illness Narrative 03-18-2024 EJ Alston - 03/18/2024 11:00 AM EDT Note Date & Type Note Facility 03-18-2024 History of Presen t illness Narrative Reason For Appointment: counseling session Therapy Goals: Therapy Goals: Goal #1: Improve motivation to feel satisfied in her daily living. Objectives: Identify barriers or stress that impact motivation issues, set goals to feel productive, engage in healthy self care, change and identify thought patterns that lead to a negative mindset. Goal #2: Explore her role as a mother//employee and feel satisfied in the direction of her life. Objectives: resolve past childhood/family issues leading to anger/depression/insecurity, shift the narrative about her expectations and develop healthy expectations, verbalize strengths, discuss emotions and thoughts as they relate to her life and life events . BINGE EATING Goal #2: Terminate the pattern of binge eating behavior with a return to normal eating. Objectives: Honestly describe the pattern of binge eating, including amounts and frequency of foods consumed. Identify a list of high-risk situations for binge eating and /or unhealthy eating habits. Identify thoughts patterns that fuel binge eating and practice reframing and identify healthier ways of thinking. Engage in healthy self care and report an improved relationship with food. Reduce compulsions and become self aware of habits. Mental Health Status Exam: Appearance: well developed, well nourished Affect: appropriate, full range Behavior: appropriate Judgement: Appropriate to age Knowledge: WNL Orientation: person, place, time Speech: clear Mood: tearful moments in session Insight: good Suicide/Homicide Risk: denied any thoughts/plans Notes: Completed individual telehealth session that included audio and video. Client reports that they are in a safe environment where they feel comfortable to talk. Client was in her home. Client was in [place]. Client provided a phone number to contact them at if the session is disconnected. Client processed feelings about her binge eating. She discussed that she no longer feels driven by thoughts to binge. She is doing better about not hiding or sneaking food. She does still need to work on changing the direction of thoughts, reframing, and increasing awareness of cues and consequences. Her vyvanse was just increased as well to help target the binging. Home life and dynamics at home have been much better with improved effort, communication, and teamwork. A big change is that her oldest daughter is changing schools due to the amount of bullying. We processed her feelings, guilt, worries, etc about the transition for her daughter. Provided support and feedback. 11:09pm-12:09pm documented in this encounter [facility] History of Present illness Narrative 03-16-2024 Delgado Cardona, PIERRE-HAIR ASSISTANT - 03/16/2024 9:30 AM EDT Note Date & Type Note Facility 03-16-2024 History of Presen t illness Narrative Images from the original note were not included. Nona Bryant is a 39 y.o. female presents for Medication Management. HPI: Patient is here for medication follow up, With regards to Bingeing She is less obsessive and driven about food. Current eating excessive calories when not hungry most days. Not feeling as guilty about consumption as previous. Most days of week. Trying to avoid sweets. She has negative consequences from excessive. Obsessiveness about food is improved. Mood is reported as not depressed. She is sad about her daughter changing schools due to bullying. Reports she feels less anxious with the improvement of things around the house. Sleeping 6 hours. Medication compliant. No reported side effects. Denies abuse of substances. Medical problems since last visit. Psychosocial stressors include daughter leaving school. Things are improved with . SUBJECTIVE: PAST MEDICAL HISTORY: Past Medical History: Diagnosis Date Binge eating disorder (CMS/HCC) Bipolar 1 disorder (CMS/HCC) Depressed ([facility]) Gestational diabetes H/O rectal polypectomy 2011 Hx of section Hx of colonoscopy 2005,2011,2016 Hypertension ([facility]) 12/19/10 only Irritable bowel syndrome with both constipation and diarrhea Panic attack ([facility]) ALLERGIES: Allergies Allergen Reactions Neomycin Hives and Itching Neomycin-Bacitracin Zn-Polymyx Rash SURGICAL HISTORY: Past Surgical History: Procedure Laterality Date SECTION, LOW TRANSVERSE 06/03/2014, 12/19/2010 COLONOSCOPY 2005, 01/2012, 10/2016 COLONOSCOPY 06/2023 IR ABLATION VEIN RFA 02/13/2021 IR ABLATION VEIN RFA FAMILY HISTORY: Family History Problem Relation Name Age of Onset Atrial fibrillation Mother Marce Diabetes Mother Marce Thyroid disease Mother Marce Parkinsonism Mother Marce Stroke Mother Marce Other (chronic inflammatory demyelinating polyneuropathy) Mother Marce Depression Mother Marce Coronary artery disease Father Hussain Weinberg Depression Father Hussain Duongll Cholelithiasis Father Hussain Duongll Atrial fibrillation Father Hussain Duongll Thyroid disease Father Hussain Duognll Parkinsonism Father Hussain Duongll Other (noncancerous brain tumor) Father Hussain Weinberg agent orange exposure Other (htn) Father Hussain Weinberg Alcohol abuse Father Hussain Weinberg Skin cancer Maternal Grandfather Colon cancer Maternal Grandfather SOCIAL HISTORY: Social History Tobacco Use Smoking status: Former Current packs/day: 0.00 Average packs/day: 1.5 packs/day for 7.3 years (11.0 ttl pk-yrs) Types: Cigarettes Start date: 06/09/2001 Quit date: 10/07/2008 Years since quittin.4 Smokeless tobacco: Never Vaping Use Vaping status: Never Used Substance Use Topics Alcohol use: Yes Alcohol/week: 1.0 standard drink of alcohol Types: 1 Standard drinks or equivalent per week Comment: Not every week Drug use: Never Depression: Not at risk (02/02/2024) PHQ-2 PHQ-2 Score: 0 REVIEW OF SYMPTOMS - MENTAL STATUS EXAM Appearance Appearance: Casual dress, normal grooming and hygiene Attitude Attitude: Cooperative, conversant, engaged, and with good eye contact. Behavior Cooperative, conversant, engaged, and with good eye contact. Speech Normal, clear, regular rate, rhythm and volume Affect full affect appropriate with mood Mood euthymic Thought Process Organized and Clear Thought Content No Suicidal Ideation and No Homicidal ideation Perception No perceptual abnormalities noted Orientation Appropriate to age, Person, Place, and Time Memory/Concentration Short term intact and manager terminal intact Insight/Judgement Good OBJECTIVE: Visit Vitals Smoking Status Former Lab Results Component Value Date TSH 1.10 10/28/2022 Lab Results Component Value Date GLU 145 (H) 10/07/2023 CALCIUM 9.2 10/07/2023 NA 134 (L) 10/07/2023 K 4.0 10/07/2023 CO2 23 10/07/2023 CL 103 10/07/2023 BUN 11 10/07/2023 CREATININE 0.65 10/07/2023 Lab Results Component Value Date WBC 8.4 10/07/2023 HGB 13.2 10/07/2023 HCT 39.8 10/07/2023 MCV 90.0 10/07/2023 PLT 318 10/07/2023 Lab Results Component Value Date CHOL 210 (H) 10/07/2023 CHOL 216 (H) 10/28/2022 Lab Results Component Value Date HDL 57 10/07/2023 HDL 47 (L) 10/28/2022 Lab Results Component Value Date LDLCALC 110 (H) 10/07/2023 LDLCALC 138 (H) 10/28/2022 Lab Results Component Value Date TRIG 326 (H) 10/07/2023 TRIG 173 (H) 10/28/2022 ASSESSMENT AND PLAN: Assessment/Plan Assess/Plan SmartLinks: Binge eating disorder (CMS/HCC) Bipolar affective disorder, remission status unspecified (CMS/HCC) High risk medication use Psych Medication List Lamictal 150mg bid -mood Increased Vyvanse 40mg po daily -target BED- Latuda 40mg daily -target depressed mood Patient was seen Face to Face, Reviewed chart documents and documentation, Visit time : 45min F/U 4 weeks to evaluate effectiveness of vyvanse for BED documented in this encounter [facility] Note 07-03-2023 Telephone Encounter - Shara Aguilera [facility] - 07/03/2023 12:49 PM ESTTelephone Encounter - Shara Aguilera [facility] - 07/03/2023 12:49 PM EST Note Date & Type Note Facility 07-03-2023 Miscellaneous Notes Formattin g of this note might be different from the original. ----- Message from Shamar Raza DO sent at 07/03/2023 11:48 AM EST ----- Regarding: RE: Colonoscopy Recall Yes ----- Message ----- From: Shara Aguilera CMA Sent: 07/03/2023 11:45 AM EST To: Shamar Raza DO Subject: Colonoscopy Recall Rubin, You performed this patient's colonoscopy on 06/26/23 but did not indicate when this patient should come back for another colonoscopy. Would you like her to come back in 10 years as it was normal? Thank you, Shara Recall was put in patient's chart. documented in this encounter We Telephone encounter Note 07-03-2023 Telephone Encounter - Shara Aguilera CMA - 07/03/2023 12:49 PM EST Note Date & Type Note Facility 07-03-2023 Telephone encount er Note ----- Message from Shamar Raza DO sent at 07/03/2023 11:48 AM EST ----- Regarding: RE: Colonoscopy Recall Yes ----- Message ----- From: Shara Aguilera CMA Sent: 07/03/2023 11:45 AM EST To: Shamar Raza DO Subject: Colonoscopy Recall Rubin, You performed this patient's colonoscopy on 06/26/23 but did not indicate when this patient should come back for another colonoscopy. Would you like her to come back in 10 years as it was normal? Thank you, Shara We Telephone encounter Note 07-03-2023 Telephone Encounter - Shara Aguilera CMA - 07/03/2023 12:49 PM EST Note Date & Type Note Facility 01-25-2024 Telephone encount er Note Recall was put in patient's chart. [facility] Evaluation note Note Date & Type Note Facility Evaluation note Diagnosis Moderate binge-eating disorder- Primary documented in this encounter [facility] Evaluation note Note Date & Type Note Facility Evaluation note Diagnosis Moderate binge-eating disorder Bipolar affective disorder, remission status unspecified (CMS/HCC) documented in this encounter [facility] Evaluation note Note Date & Type Note Facility Evaluation note Diagnosis Bipolar disorder in partial remission, most recent episode unspecified type (CMS/HCC) Bipolar disorder, current episode mixed, moderate (CMS/HCC) Moderate binge-eating disorder documented in this encounter [facility] Instructions Note Date & Type Note Facility Instructions Not on filedocumented in this en counter [facility] Summary Purpose Family History No Family History Records FoundNo Family History Records FoundNo Family History Records Found Advance Directives No Advanced Directives Records FoundNo Advanced Directives Records FoundNo Advanced Directives Records Found Additional Source Comments INFORMATION SOURCE (unrecogn ized section and content) DATE CREATED AUTHOR 12/25/2021 [facility] DATE CREATED AUTHOR AUTHOR'S ORGANIZ ATION 07/06/2023 [facility] DATE CREATED AUTHOR AUTHOR'S ORGANIZ ATION 04/22/2024 [facility] EPIC Care Teams (unrecognized sec tion and content) Major [employer] Supervisor Relationship Specialty Start Date End Date Nona Mix MD [address] [place] [address] PCP - General Family Medicine 11/08/20 [employer] Supervisor Relationship Specialty Start Date End Date Delgado Cardona, TISSUE COORDINATOR-HAIR ASSISTANT [address] [place] [address] [place] [address] PCP - Adam Zavala 01/07/22 Nona Mix MD [address] [place] [address] PCP - General Family Medicine 11/14/22 Delgado Cardona, TISSUE COORDINATOR-HAIR ASSISTANT [address] [facility] [address] [place] [address] Nurse Practitioner Behavioral Health 11/14/22 [employer] Supervisor Relationship Specialty Start Date End Date Delgado Cardona, TISSUE COORDINATOR-HAIR ASSISTANT [address] [facility] [address] [place] [address] PCP - [employer] 01/07/22 Nona Mix MD [address] [place] [address] PCP - General Family Medicine 11/14/22 Delgado Cardona, TISSUE COORDINATOR-HAIR ASSISTANT [address] [facility] [address] [place] [address] Nurse Practitioner Behavioral Health 11/14/22 [employer] Supervisor Relationship Specialty Start Date End Date Delgado Cardona, TISSUE COORDINATOR-HAIR ASSISTANT [address] [facility] [address] [place] [address] PCP - [employer] 01/07/22 Nona Mix MD [address] [place] [address] PCP - General Family Medicine 11/14/22 Delgado Cardona, TISSUE COORDINATOR-HAIR ASSISTANT [address] [facility] [address] [place] [address] Nurse Practitioner Behavioral Health 11/14/22 [employer] Supervisor Relationship Specialty Start Date End Date Delgado Cardona, TISSUE COORDINATOR-HAIR ASSISTANT [address] [facility] [address] [place] [address] PCP - [employer] 01/07/22 Nona Mix MD [address] [facility] [place] [address] PCP - General Family Medicine 11/14/22 Delgado Cardona [facility] [address] [facility] [address] [place] [address] Nurse Practitioner Behavioral Health 11/14/22 [employer] Supervisor Relationship Specialty Start Date End Date Delgado Cardona [facility] [address] [facility] [address] [place] [address] PCP - [employer] 01/07/22 Nona Mix MD [address] [place] [address] PCP - General Family Medicine 11/14/22 Delgado Cardona [facility] [address] [facility] [address] [place] [address] Nurse Practitioner Behavioral Health 11/14/22 Reason for Visit (unrecogniz ed section and content) Reason Comments Med Management Follow-up Wants to discuss [employer] brothers feels it needs increased. Its not really helping the binge eating. Its helping the frequency of bingeing but not helping the size of the binge when bingeing. Reason Comments counseling session Reason Comments Med Management Follow-up FOR RECORDS PERTAINING TO PATIENTS WHO ARE OR HAVE BEEN ENROLLED IN A CHEMICAL DEPENDENCY/SUBSTANCEABUSE PROGRAM, SOME INFORMATION MAY BE OMITTED. This clinical summary was aggregated from multiple sources. Caution should be exercised in using it in the provision of clinical care. This summary normalizes information from multiple sources, and as a consequence, information in this document may materially change the coding, format and clinical context of patient data. In addition, data may be omitted in some cases. CLINICAL DECISIONS SHOULD BE BASED ON THE PRIMARY CLINICAL RECORDS. [facility] [facility]. provides no warranty or guarantee of the accuracy or completeness of information in this document.
== END 2024-04-22 11:02 | disposition home or self-care (01) ==
LOC: NOMS 11:01
PROVIDERS: PCP Obstetrics & Gynecology; Visit Provider Obstetrics & Gynecology
DX: E28.2 Polycystic ovarian syndrome (principal); Z97.5 Presence of (intrauterine) contraceptive device
CPT/HCPCS: 76830; 76856

== ENCOUNTER 2024-06-11 12:08 | Outpatient (OUT) | payer BC, SELFPAY ==
--- OUTSIDE RECORDS SUMMARY | 2024-06-11 12:11 | XMS_ITS | CCD ---
Author Organization [facility] Care Team Providers Care Satellite Project Site Monitor Name Role Phone BRITTNEE, DR MIGUEL Consulting Unavailable BRITTNEE, DR MIGUEL Admitting Unavailable BRITTNEE, DR MIGUEL Attending Unavailable MARIA DEL ROSARIO, DR DAVENPORT Primary Care Unavailable BRITTNEE, DR MIGUEL Admitting Unavailable BRITTNEE, DR MIGUEL Attending Unavailable MARIA DEL ROSARIO, DR DAVENPORT Primary Care Unavailable BRITTNEE, DR MIGUEL Consulting Unavailable BRITTNEE, DR MIGUEL Admitting Unavailable BRITTNEE, DR MIGUEL Attending Unavailable MARIA DEL ROSARIO, DR DAVENPORT Primary Care Unavailable BRITTNEE, DR MIGUEL Consulting Unavailable Maria Del Rosario [facility], [facility] Primary Care Provider SHAMAR RAZA Admitting Unavailable SHAMAR RAZA Attending Unavailable MARIA DEL ROSARIO [facility] Primary Care Unavailable SHAMAR RAZA Attending Unavailable SHAMAR RAZA Referring Unavailable MARIA DEL ROSARIO [facility] Primary Care Unavailable ELICIA MCKENZIE Attending Unavailable MARIA DEL ROSARIO [facility] Primary Care Unavailable Brenda-Nossek MATERIALS ASSISTANT-HACKLER DOLL WIGSDelgado Unavailable Maria Del Rosario [facility] Primary Care Provider [phone] Brenda-Nossek MATERIALS ASSISTANT-[employer] DO[employer] WIGSDelgado Unavailable DELGADO CARDONA Attending Unavailab MACRINA Parker Attending Unavailable MACRINA MONTES Attending Unavailable MYRIAM BEAULIEU Attending Unavailable DELGADO CARDONA Attending Unavailab NONA Barrientos Attending Unavailable MACRINA MONTES Attending Unavailable MACRINA MONTES Attending Unavailable DELGADO CARDONA Attending Unavailab NONA Barrientos Attending Unavailable MACRINA MONTES Attending Unavailable DELGADO CARDONA Attending Unavailab DELGADO Hays Attending Unavailab MACRINA Parker Attending Unavailable DELGADO CARDONA Attending Unavailab NONA Barrientos Attending Unavailable DELGADO CARDONA Attending Unavailab MACRINA Parker Attending Unavailable DELGADO CARDONA Attending Unavailab MYRIAM Luis Attending Unavailable MAGEN WEAVER Attending Unavailable DELGADO CARDONA Referring UnavailMAGEN Castillo Attending Unavailable Allergies Allergy Classification Reported Allergen(s) Allergy Type Date of Onset Reaction(s) Facility (1 source) Bacitracin / Neomycin / Polymyxin B Drug Allergy 2 [facility] (2 sources) bacitracin / neomycin / polymyxin b; Translations: [NEOMYCIN-BACIT RACIN-POLYMYXIN ] Drug Allergy 6 Rash [facility] (20 sources) Neomycin Drug Allergy 2 Hives, Itching [facility] Work Phone: (7 sources) Neomycin-Bacitr acin Zn-Polymyx Drug Intolerance 6 Rash [facility] (4 sources) Bacitracin / Polymyxin B Drug Allergy 4 [facility] Work Phone: Medications Current Medications Medication Drug Class(es) Dates Sig (Normalized) Sig (Original) cetirizine hydrochloride 10 mg oral tablet (5 sources) Histamine-1 Receptor Antagonist Start: 02-25-2024 End: 08-23-2024 take 1 tablet by mouth once daily cetirizine (ZyrTEC) 10 MG tablet Indications: Rash Take 1 tablet (10 mg) by mouth Daily 30 tablet 02/25/2024 03/16/2024 Discontinued (Therapy completed) copper 313 mg drug implant (20 sources) Copper-containing Intrauterine Device copper (Paragard) IUD by Intrauterine route 1 (one) time. Active copper (PARAGARD T 380A) 380 square mm intrauterine device IUD by intrauterine route. 0 Active desogestrel 0.15 mg / ethinyl estradiol 0.03 mg oral tablet (20 sources) Progestin, Estrogen Start: 05-25-2024 desogestrel-ethinyl estradiol (Apri) 0.15-30 MG-MCG tablet Indications: Abnormal Uterine Bleeding Take 1 tablet by mouth Daily 28 tablet 11 05/25/2024 Active Start: 09-29-2023 End: 05-25-2024 take 1 tablet by mouth once daily, then take 1 tablet by mouth once daily desogestrel-ethinyl estradiol (Apri) 0.15-30 MG-MCG tablet Indications: Hormone imbalance Take 1 tablet by mouth Daily for 28 days Take 1 tablet by mouth daily 28 tablet 11 09/29/2023 04/20/2024 Discontinued lamoTRIgine 150 mg oral tablet (20 sources) Mood Stabilizer, Anti-epileptic Agent Start: 01-05-2024 End: 06-24-2024 take 1 tablet by mouth in the morning lamoTRIgine (LaMICtal) 150 MG tablet Indications: Bipolar disorder in partial remission, most recent episode unspecified type (CMS/HCC) Take 1 tablet (150 mg) by mouth in the morning and 1 tablet (150 mg) before bedtime. 60 tablet 2 05/25/2024 06/24/2024 Active Start: 02-19-2023 take 1 tablet by mango th in the morning, then take 1 tablet by mouth at bedtime lamoTRIgine (LaMICtal) 150 mg tablet Take 1 tablet (150 mg total) by mouth in the morning and 1 tablet (150 mg total) before bedtime. 0 02/19/2023 Active lisdexamfetamine dimesylate 30 mg oral capsule (20 sources) Central Nervous System Stimulant Start: 04-14-2024 End: 06-24-2024 take 1 capsule by mouth in the morning lisdexamfetamine (Vyvanse) 30 MG capsule Indications: Moderate binge-eating disorder Take 1 capsule (30 mg) by mouth in the morning. 30 capsule 05/25/2024 06/24/2024 Active Start: 03-16-2024 End: 04-15-2024 take 1 capsule by mouth in the morning lisdexamfetamine (Vyvanse) 40 MG capsule Indications: Moderate binge-eating disorder Take 1 capsule (40 mg) by mouth in the morning. 30 capsule 03/16/2024 04/14/2024 Discontinued Start: 01-05-2024 End: 03-16-2024 take 1 capsule by mouth in the morning lisdexamfetamine (Vyvanse) 30 MG capsule Indications: Binge eating disorder (CMS/HCC) Take 1 capsule (30 mg) by mouth in the morning. 30 capsule 02/02/2024 Active lurasidone hydrochloride 40 mg oral tablet (20 sources) Atypical Antipsychotic Start: 12-01-2023 End: 08-23-2024 take 1 tablet by mouth at mealtime lurasidone (Latuda) 40 MG tablet Indications: Bipolar disorder, current episode mixed, moderate (CMS/HCC) Take 1 tablet (40 mg) by mouth in the evening. Take with meals 30 tablet 2 05/25/2024 08/23/2024 Active Start: 10-16-2020 take 1 tablet by mango th once daily LATUDA 40 mg tablet Take 1 tablet (40 mg total) by mouth nightly. 0 10/16/2020 Active polyethylene glycol 3350 170 00 mg powder for oral solution (20 sources) Osmotic Laxative polyethylene gl ycol, PEG, 3350 (Glycolax) 17 GM/SCOOP powder Take 34 g by mouth if needed Active polyethylene gly col (GLYCOLAX) 17 gram/dose powder Take 17 g by mouth in the morning. 0 Active triamcinolone acetonide 1 mg/ml topical cream (5 sources) Corticosteroid Start: 02-25-2024 End: 03-16-2024 triamcinolone (Kenalog) 0.1 % cream Indications: Rash Apply topically 2 (two) times a day 60 g 02/25/2024 03/16/2024 Discontinued (Therapy completed) Problems Active Problems Problem Classification Problem Date Documented Date Episodic/Chronic Adjustment disorders (20 sources) Adjustment disorder; Translations: [Adjustment disorder, unspecified] Onset: 02-25-2024 02-25-2024 Chronic Anxiety disorders (20 sources) Panic attack; Translations: [Panic disorder [episodic paroxysmal anxiety]] Onset: 10-15-2022 10-15-2022 Chronic Contraceptive and procreative management (20 sources) Intrauterine contraceptive device in situ; Translations: [Presence of (intrauterine) contraceptive device] Onset: 08-25-2023 08-25-2023 Episodic Immunizations and screening for infectious disease (3 sources) Encounter for screening for human papillomavirus (HPV); Translations: [Exposure to sexually transmissible disorder] Onset: 08-01-2021 04-20-2024 Episodic Miscellaneous mental health disorders (20 sources) Binge eating disorder; Translations: [Binge eating disorder] Onset: 10-30-2023 10-30-2023 Chronic Mood disorders (20 sources) Bipolar disorder; Translations: [Bipolar disorder, unspecified] Onset: 10-15-2022 10-15-2022 Chronic Other diseases of veins and lymphatics (20 sources) Venous hypertension; Translations: [Chronic venous hypertension (idiopathic) without complications of unspecified lower extremity] Onset: 01-08-2021 01-08-2021 Chronic Other endocrine disorders (2 sources) Polycystic ovary syndrome; Translations: [Polycystic ovarian syndrome] 04-20-2024 Chronic Other endocrine disorders (4 sources) Endocrine disorder, unspecified; Translations: [ENDOCRINE DISORDER UNSPECIFIED] Onset: 12-13-2021 Episodic Other female genital disorders (2 sources) Abnormal uterine bleeding; Translations: [Abnormal uterine and vaginal bleeding, unspecified] 04-20-2024 Chronic Other female genital disorders (4 sources) Vaginal discharge; Translations: [Other specified noninflammatory disorders of vagina] 04-20-2024 Episodic Other nervous system disorders (20 sources) Difficulty walking; Translations: [Difficulty in walking, not elsewhere classified] Onset: 02-25-2024 02-25-2024 Chronic Other nutritional; endocrine; and metabolic disorders (2 sources) Insulin resistance; Translations: [Insulin resistance] 05-05-2024 Chronic Other skin disorders (2 sources) Eruption; Translations: [Rash and other nonspecific skin eruption] 02-25-2024 Episodic Residual codes; unclassified (4 sources) Decreased libido; Translations: [DECREASED LIBIDO] Onset: 11-07-2021 Episodic Residual codes; unclassified (1 source) Family history of malignant neoplasm of digestive organs; Translations: [Family history of malignant neoplasm of digestive organs] Onset: 06-26-2023 Episodic Residual codes; unclassified (2 sources) Reduced libido; Translations: [Decreased libido] 05-05-2024 Episodic Unclassified (1 source) family history of colon cancer Onset: 06-26-2023 Past or Other Problems Problem Classification Problem Date Documented Da te Episodic/Chronic Other aftercare (20 sources) Taking high risk medication; Translations: [Other half-way (current) drug therapy] Onset: 10-15-2022 10-15-2022 Episodic Other endocrine disorders (20 sources) Disorder of endocrine system; Translations: [Endocrine disorder, unspecified] Onset: 08-25-2023 08-25-2023 Episodic Other female genital disorders (20 sources) Vaginal dryness; Translations: [Other specified noninflammatory disorders of vagina] Onset: 08-25-2023 08-25-2023 Episodic Other gastrointestinal disorders (20 sources) Chronic constipation; Translations: [Other constipation] Onset: 02-25-2024 02-25-2024 Episodic Other screening for suspected conditions (not mental disorders or infectious disease) (4 sources) Encounter for screening for malignant neoplasm of cervix; Translations: [ENC SCREENING MALIG NEOPLASM CERV] Onset: 07-31-2021 Episodic Other skin disorders (20 sources) Disorder of sweat gland; Translations: [Eccrine sweat disorder, unspecified] Onset: 08-25-2023 08-25-2023 Episodic Residual codes; unclassified (20 sources) History of surgical procedure on vein; Translations: [Other specified postprocedural states] Onset: 02-23-2021 02-23-2021 Episodic Varicose veins of lower extremity (20 sources) Varicose veins of lower limb co-occurrent with edema; Translations: [Varicose veins of left lower extremity with other complications] Onset: 10-23-2020 10-23-2020 Episodic Viral infection (20 sources) Plantar wart of right foot; Translations: [Plantar wart] Onset: 02-25-2024 02-25-2024 Episodic Results Test Name Value Interpretation Reference Range Facility ALL DEHYDROEPIANDROSTERONEon 04-26-2024 DHEA, SERUM 286 ng/dL 31 - 701 ng/dL [facility] Comment on above: This test was develo ped and its performance characteristics determined by [facility]. It has not been cleared or approved by the Food and Drug Administration. Performed at: [address] [id number] Material Reclaimer: Shirlene Valenzuela MD, Phone: [phone] [facility] ALL DHEA SULFATEon DHEA-SULFATE 289.0 ug/dL Abnormal 57.3 - 279.2 ug/dL [facility] Interpretation and review of laboratory results Abnormal [facility] ALL FOLLICLE STIMULATING HOR MONEon 04-21-2024 FSH 2.3 . mIU/mL [facility] Comment on above: Adult Female Range Follicular phase 3.5 - 12.5 Ovulation phase 4.7 - 21.5 Luteal phase 1.7 - 7.7 Postmenopausal 25.8 - 134.8 Performed at: [address] [id number] Material Reclaimer: Emerson Oreilly PhD, Phone: [phone] ALL LUTEINIZING HORMONEon LUTEINIZING HORMONE(LH) 0.8 . mIU/mL N [facility] Comment on above: Adult Female Range Follicular phase 2.4 - 12.6 Ovulation phase 14.0 - 95.6 Luteal phase 1.0 - 11.4 Postmenopausal 7.7 - 58.5 No Panel Informationon 04-[address] [facility] RECURRENT VAGINITIS (HTRX)on 04-21-[address] [facility] ATOPOBIUM VAGINAE Not detected [facility] BVAB 2,3 (BACTERIAL VAGINOSIS ASSOCIATED BACTERIA 2, 3); MOBILUNCUS SPP 0 [facility] BVAB 2,3 (BACTERIAL VAGINOSIS ASSOCIATED BACTERIA 2, 3); MOBILUNCUS SPP Not detected [facility] CHELO ALBICANS, PARAPSILOSIS, TROPICALIS 0 [facility] CHELO ALBICANS, PARAPSILOSIS, TROPICALIS Not detected [facility] CHELO GLABRATA 0 [facility] CHELO GLABRATA Not detected [facility] CHELO KRUSEI [address] [facility] CHELO KRUSEI Not detected [facility] CHLAMYDIA TRACHOMATIS 0 [facility] CHLAMYDIA TRACHOMATIS Not detected N [facility] GARDNERELLA VAGINALIS 0 [facility] GARDNERELLA VAGINALIS Not detected N [facility] MEGASPHAERA (TYPES 1, 2) 0 [facility] MEGASPHAERA (TYPES 1, 2) Not detected [facility] MYCOPLASMA GENITALIUM 0 [facility] MYCOPLASMA GENITALIUM Not [facility] NEISSERIA GONORRHOEAE 0 [facility] NEISSERIA GONORRHOEAE Not detected N [facility] TRICHOMONAS VAGINALIS 0 [facility] TRICHOMONAS VAGINALIS Not detected [facility] ALL CBC WITH AUTO DIFFon BASOPHILS ABSOLUTE AUTO 0.1 N [facility] Basophils/100 WBC (Bld) 0.8 % 0.2 - 2.0 % [facility] Eosinophils/100 WBC (Bld) 0.6 % Low 0.9 - 7.0 % [facility] Erythrocyte distribution width (RBC) [Ratio] 12.3 % 11.0 - 15.0 % [facility] Hematocrit (Bld) [Volume fraction] 39.4 % 36.0 - 48.0 % [facility] Hemoglobin (Bld) [Mass/Vol] 13.4 g/dL 12.0 - 16.0 g/dL [facility] IMMATURE GRANULOCYTES ABS AUTO 0.02 [facility] Immature granulocytes/100 WBC (Bld) 0.2 % 0.0 - 0.5 % [facility] Interpretation and review of laboratory results Abnormal [facility] LYMPHOCYTES ABSOLUTE AUTO 2.7 [facility] Lymphocytes/100 WBC (Bld) 32 % 20 .5 - 60.0 % [facility] MCH (RBC) [Entitic mass] 29.6 pg 26. 7 - 34.[address] [facility] MCHC (RBC) [Mass/Vol] 34 g/dL 29.9 - 35.2 g/dL [facility] MCV (RBC) [Entitic vol] 87.2 fL 81.0 - 99.[address] [facility] MONOCYTES ABSOLUTE AUTO 0.5 N [facility] Monocytes/100 WBC (Bld) 6 % 1.7 - 12.0 % [facility] NEUTROPHILS ABSOLUTE AUTO 5.1 [facility] Neutrophils/100 WBC (Bld) 60.4 % 43 .0 - 75.0 % [facility] Platelet mean volume (Bld) [Entitic vol] 9.2 fL Low 9.5 - 13.5 [facility] PLT 321 [facility] RBC 4.52 [facility] WBC 8.4 [facility] ALL THYROID STIM HORMONEon 06-20-2023 TSH Qn 1.341 m[IU]/L [facility] ALL THYROXINE (T4) FREEon Free T4 [Mass/Vol] 0.94 ng/dL 0.76 - 1. 46 ng/dL [facility] MLR HEMOGLOBIN A1Con 024 Glucose [Mass/Vol] 114 mg/dL [facility] HbA1c (Bld) [Mass fraction] 5.6 % 4.5 - 6. 2 % [facility] Comment on above: ADA RECOMMENDED LIMI T 4.0 - 6.0 ADA THERAPEUTIC TARGET < 7.0 ACTION SUGG[facility]ED > [facility] 04[facility]H PREG QUANT HCGon 024 HCG QUANTITATIVE <1 mIU/mL [facility] Comment on above: 5-50 0.2-1 WEEK 50-500 1-2 WEEKS 100-5,000 2-3 WEEKS 500-10,000 3-4 WEEKS 1,000-50,000 4-5 WEEKS 10,000-100,000 5-6 WEEKS 15,000-200,000 6-8 WEEKS 10,000-100,000 2-3 MONTHS HCG ( test) Ql (U)o n 06-26-2023 Beta HCG ( test) Ql (U) Negative Normal NEG [facility] Comment on above: Performed By: #### 2 [id number] #### [facility] ([id number]) [address] [place] [address], [place] [address] CORTISOL FREE, SERUMon 12-21 Cortisol, Free Dialysis, LCMS 1.06 ug/dL Normal [facility] Comment on above: Result Comment: Thes e tests were developed and their performance characteristics determined by [facility]. They have not been cleared or approved by the Food and Drug Administration. Reference Range: 8 AM 0.10 - 1.20 4 PM 0.042 - 0.872 Performed By: #### F RECORT #### [facility] [address] [place] [address] Dr. Lawanda Bentley VIT D 1 25 DIHYDROXYon 12-19 Calcitriol(1,25 di-OH Vit D) 72.9 pg/mL Normal 24.8-81.5 [facility] Comment on above: Result Comment: Pl ease note reference interval change Performed By: #### V [id number] #### [facility] [address] [place] [address] Dr. Lawanda Bentley INSULINon 12-14-2021 Insulin 20.1 uIU/mL Normal 2.6-24.9 [facility] Comment on above: Performed By: #### F RECORT #### [facility] [address] [address] [address] Lawanda Bentley GLUCOSE BLOODon 12-13-2021 Glucose [Mass/Vol] 107 mg/dL Critically high 74-106 [facility] Comment on above: Performed By: #### G SHELIA #### [facility] [address] [address] [address] Lawanda Bentley GLYCOHEMOGLOBIN A1Con 2021 ADA RECOMMENDATION SEE BELOW Normal [facility] Comment on above: Result Comment: ADA RECOMMENDED LIMIT 4.0 - 6.0 ADA THERAPEUTIC TARGET < 7.0 ACTION SUGGESTED > 7.0 Performed By: #### A 1C #### [facility] [address] [place] [address] Dr. Lawanda Bentley Glucose [Mass/Vol] 108 mg/dL Normal [facility] Comment on above: Performed By: #### A 1C #### [facility] [address] [place] [address] Dr. Lawanda Bentley HbA1c (Bld) [Mass fraction] 5.4 % Normal 4.5-6.2 [facility] Comment on above: Performed By: #### A 1C #### [facility] [address] [place] [address] Dr. Lawanda Bentley TESTOSTERONE, FREE,DIRECT, T OTALon 11-10-2021 Free Testosterone(Direct) 4.0 pg/mL Normal 0.0-4.2 [facility] Comment on above: Result Comment: Perf ormed at: BN Performed By: #### T ESTFRD #### [facility] [address] [place] [address] Dr. Lawanda Bentley Testosterone [Mass/Vol] 40 ng/dL Normal 8-60 [facility] Comment on above: Result Comment: Perf ormed at: CB Performed By: #### T ESTFRD #### [facility] [address] [place] [address] Dr. Lawanda Bentley ESTRONEon 11-09-2021 Estrone, Serum 118 pg/mL Normal 27-231 [facility] Comment on above: Result Comment: [place] dima Adult (Premenopausal) 27 - 231 Menstrual Cycle (1-10 days) 19 - 149 Menstrual Cycle (11-20 days) 32 - 176 Menstrual Cycle (21-30 days) 37 - 200 Performed By: #### E ELIZABETH #### [facility] [address] [place], [place] [address] Dr. Lawanda Bentley VIT D 1 25 DIHYDROXYon 11-09 Calcitriol(1,25 di-OH Vit D) 98.8 pg/mL Critically high 19.9-79.3 [facility] Comment on above: Result Comment: Ef fective November 12, 2021 Calcitriol(1,25 di-OH Vit D) reference interval will be changing to: pg/mL . 0 - 6 months: 44.3 - 212.9 7 months - 1 year: 40.3 - 112.4 >1 year: 24.8 - 81.5 Performed By: #### V [id number] #### [facility] [address] [address] [address] Lawanda Bentley CORTISOLon 11-08-2021 Cortisol 8.9 ug/dL Normal [facility] Comment on above: Result Comment: Brent isol AM 6.2 - 19.4 Cortisol PM 2.3 - 11.9 Performed By: #### F RECORT #### [facility] [address] [address] [address] Lawanda Bentley DHEA-SULFATEon 11-08-2021 DHEA-Sulfate 415.0 ug/dL Critically high 57.3-279.2 [facility] Comment on above: Performed By: #### D DANE #### [facility] [address] [address] [address] Lawanda Bentley ESTRADIOLon 11-08-2021 Estradiol 87.8 pg/mL Normal [facility] Comment on above: Result Comment: Adul t Female: Follicular phase 12.5 - 166.0 Ovulation phase 85.8 - 498.0 Luteal phase 43.8 - 211.0 Postmenopausal <6.0 - 54.7 1st trimester 215.0 - >4300.0 Shell ECLIA methodology Performed By: #### E ARMIN #### [facility] [address] [place] [address] Dr. Lawanda Bentley PROGESTERONEon 11-08-2021 Progesterone 2.5 ng/mL Normal [facility] Comment on above: Result Comment: Foll icular phase 0.1 - 0.9 Luteal phase 1.8 - 23.9 Ovulation phase 0.1 - 12.0 First trimester 11.0 - 44.3 Second trimester 25.4 - 83.3 Third trimester 58.7 - 214.0 Postmenopausal 0.0 - 0.1 Performed By: #### F RECORT #### [facility] [address] [place] [address] Dr. Lawanda Bentley SEX HORMONE-BINDING GLOBULIN on 11-08-2021 Sex Horm Binding Glob, Serum 27.5 nmol/L Normal 24.6-122.0 [facility] Comment on above: Performed By: #### S EXHBG #### [facility] [address] [place] [address] Dr. Lawanda Bentley PAP ACOG PANEL 2: 30 to 65on 08-03-2021 . . Normal [facility] Comment on above: Result Comment: Perf ormed at: WB Performed By: #### F RECORT #### [facility] [address] [place] [address] Dr. Lawanda Bentley Age Gdln ACOG Testing 30-65 Normal [facility] Comment on above: Performed By: #### F RECORT #### [facility] [address] [place] [address] Dr. Lawanda Bentley DIAGNOSIS: Comment Normal [facility] Comment on above: Result Comment: NEGA TIVE FOR INTRAEPITHELIAL LESION OR MALIGNANCY. Performed at: WB Performed By: #### F RECORT #### [facility] [address] [place] [address] Dr. Lawanda Bentley HPV Aptima Negative Normal Negative [facility] Comment on above: Result Comment: This nucleic acid amplification test detects fourteen high-risk HPV types (16,18,31,33,35,39,45,51,52,56,58,59,66,68) without differentiation. Performed at: =G Performed By: #### F RECORT #### [facility] [address] [place] [address] Dr. Lawanda Bentley Methodology: Comment Normal [facility] Comment on above: Result Comment: This liquid based ThinPrep(R) pap test was screened with the use of an image guided system. Performed at: WB Performed By: #### F RECORT #### [facility] [address] [place] [address] Dr. Lawanda Bentley Note: Comment Normal [facility] Comment on above: Result Comment: The [...] WB Performed By: #### F RECORT #### [facility] [address] [place] [address] Dr. Lawanda Bentley Performed by: Comment Normal [facility] Comment on above: Result Comment: Ada Bucio Mate Chief (ASCP) Performed at: WB Performed By: #### F RECORT #### [facility] [address] [place] [address] Dr. Lawanda Bentley Specimen adequacy: Comment Normal [facility] Comment on above: Result Comment: Sati sfactory for evaluation. Endocervical and/or squamous metaplastic cells (endocervical component) are present. Performed at: WB Performed By: #### F RECORT #### [facility] [address] [place] [address] Dr. Lawanda Bentley Vital Signs Date Time Vital Sign Value Performing Clinician Faci lity 04-20-2024 12:02-0500 Body mass index (BMI) [Ratio] 32.31 kg/m2 Frograms Work Phone: [facility] 04-20-2024 12:02-0500 Body weight 82.74 kg Frograms Work Phone: [facility] 04-20-2024 12:02-0500 Diastolic blood pressure 82 mm[Hg] Frograms Work Phone: [facility] 04-20-2024 12:02-0500 Systolic blood pressure 120 mm[Hg] Myriam Beaulieu DO Work Phone: [facility] 04-14-2024 11:04-0500 Body mass index (BMI) [Ratio] 32.42 kg/m2 Delgado Brenda-Nossek MATERIALS ASSISTANT-[employer] Work Phone: [facility] 04-14-2024 11:04-0500 Body weight 83.01 kg Delgado Brenda-Nossek MATERIALS ASSISTANT[employer] Work Phone: [facility] 04-14-2024 11:04-0500 Diastolic blood pressure 86 mm[Hg] Delgado Brenda-Nossek MATERIALS ASSIST[employer] Work Phone: [facility] 04-14-2024 11:04-0500 Systolic blood pressure 134 mm[Hg] Delgado Brenda-Nossek MATERIALS ASSIST[employer] Work Phone: [facility] 03-16-2024 09:29-0400 Body mass index (BMI) [Ratio] 32.77 kg/m2 Delgado Brenda-Nossek MATERIALS ASSIST[employer] Work Phone: [facility] 03-16-2024 09:29-0400 Body weight 83.92 kg Delgado Brenda-Nossek MATERIALS ASSISTANT[employer] Work Phone: [facility] 03-16-2024 09:29-0400 Diastolic blood pressure 84 mm[Hg] Delgado Brenda-Nossek MATERIALS ASSIST[employer] Work Phone: [facility] 03-16-2024 09:29-0400 Heart rate 73 /min Delgado Brenda-Nossek MATERIALS ASSIST[employer] Work Phone: [facility] 03-16-2024 09:29-0400 Systolic blood pressure 132 mm[Hg] Delgado Brenda-Nossek MATERIALS ASSIST[employer] Work Phone: [facility] 02-25-2024 10:42-0400 Body height 160 cm Nona Mix MD Work Phone: [facility] 02-25-2024 10:42-0400 Body mass index (BMI) [Ratio] 32.38 kg/m2 Nona Mix MD Work Phone: [facility] 02-25-2024 10:42-0400 Body weight 82.92 kg Nona Mix MD Work Phone: [facility] 02-25-2024 10:42-0400 Diastolic blood pressure 88 mm[Hg] Nona Mix MD Work Phone: [facility] 02-25-2024 10:42-0400 Heart rate 76 /min Nona Mix MD Work Phone: [facility] 02-25-2024 10:42-0400 Respiratory rate 18 /min Nona Mix MD Work Phone: [facility] 02-25-2024 10:42-0400 SaO2% (BldA) [Mass fraction] 99 % Nona Mix MD Work Phone: [facility] 02-25-2024 10:42-0400 Systolic blood pressure 126 mm[Hg] Nona Mix MD Work Phone: [facility] 02-02-2024 14:07-0400 Body mass index (BMI) [Ratio] 32.24 kg/m2 Delgado Brenda-Nossek MATERIALS ASSISTANT[employer] Work Phone: [facility] 02-02-2024 14:07-0400 Body weight 82.56 kg Delgado Brenda-Nossek MATERIALS ASSIST[employer] Work Phone: [facility] 02-02-2024 14:07-0400 Diastolic blood pressure 82 mm[Hg] Delgado Brenda-Nossek MATERIALS ASSIST[employer] Work Phone: [facility] 02-02-2024 14:07-0400 Heart rate 81 /min Delgado Brenda-Nossek MATERIALS ASSIST[employer] Work Phone: [facility] 02-02-2024 14:07-0400 Systolic blood pressure 128 mm[Hg] Delgado Brenda-Nossek MATERIALS ASSIST[employer] Work Phone: [facility] Encounters Encounter Date Encounter Type Care Provider Facility Start: 05-31-2024 End: 05-31-2024 ambulatory MAGEN WEAVER Not Available Start: 05-25-2024 End: 05-25-2024 Julitoill Delgado GutierrezGurpreetharjinder MATERIALS ASSIST[employer] Work Phone: [facility] Comment on above: Moderate binge-eatin g disorder; Bipolar disorder in partial remission, most recent episode unspecified type (CMS/HCC); Bipolar disorder, current episode mixed, moderate (CMS/HCC) Family planning (Lona nona Dx) Start: 05-17-2024 End: 05-17-2024 Bamboo flowsheet Magen Weaver MS, RDN, LD, CHES [facility] Start: 05-17-2024 End: 05-17-2024 Bamboo flowsheet Magen Weaver MS, RDN, LD, CHES [facility] Start: 05-17-2024 End: 05-17-2024 ambulatory MAGEN WEAVER Not Available Start: 05-05-2024 End: 05-05-2024 Phys/qhp telephone evaluation 5-10 min Myriam Brittnee DO Work Phone: [facility] Comment on above: Vaginal discharge; Insulin resistance; Decreased libido Start: 04-20-2024 End: 04-20-2024 Bamboo flowsheet Myriam Brittnee DO Work Phone: [facility] Start: 04-20-2024 End: 04-21-2024 Bamboo flowsheet Myriam Brittnee DO Work Phone: [facility] Start: 04-20-2024 End: 04-20-2024 Clinisync Result Encounter Myriam Brittnee DO Work Phone: [facility] Unsolicited Start: 04-20-2024 End: 04-21-2024 External Result Encounter Myriam Brittnee DO Work Phone: [facility] Unsolicited Start: 04-20-2024 End: 04-20-2024 Office outpatient visit 15 minutes Myriam Brittnee DO Work Phone: [facility] Comment on above: Vaginal discharge; PCOS (polycystic ovarian syndrome); Abnormal uterine bleeding (AUB); STD exposure Start: 04-20-2024 End: 04-20-2024 ambulatory MYRIAM BEAULIEU Not Available Start: 04-14-2024 End: 04-14-2024 ambulatory DELGADO Hurd BRENDA-NOSSEK Not Available Start: 04-14-2024 End: 04-14-2024 Office outpatient visit 40 minutes Delgado Hurd Brenda-Nossek MATERIALS ASSIST[employer] Work Phone: [facility] Comment on above: Bipolar disorder in partial remission, most recent episode unspecified type (CMS/HCC); Bipolar disorder, current episode mixed, moderate (CMS/HCC); Moderate binge-eating disorder Start: 03-18-2024 End: 03-18-2024 Bamboo flowsheet Macrina S Bolton [employer]EL [employer]OTA-S Work Phone: [facility] Start: 03-18-2024 End: 03-18-2024 Bamboo flowsheet Macrina S Simon [employer] Work Phone: [facility] Start: 03-18-2024 End: 03-18-2024 ambulatory MACRINA S SIMON Not Available Start: 03-16-2024 End: 03-16-2024 Bamboo flowsheet Delgado Vannessa Brenda-Nossek MATERIALS ASSIST[employer] Work Phone: [facility] Start: 03-16-2024 End: 03-16-2024 Bamboo flowsheet Delgado Vannessa Brenda-Nossek MATERIALS ASSIST[employer] Work Phone: [facility] Start: 03-16-2024 End: 03-16-2024 Office outpatient visit 40 minutes Delgado Vannessa Brenda-Nossek MATERIALS ASSIST[employer] Work Phone: [facility] Comment on above: Moderate binge-eatin g disorder (Primary Dx) Start: 03-16-2024 End: 03-16-2024 ambulatory DELGADO Vannessa BRENDA-NOSSEK Not Available Start: 02-25-2024 End: 02-25-2024 Bamboo flowsheet Nona Mix MD Work Phone: [facility] Start: 02-25-2024 End: 02-25-2024 Bamboo flowsheet Nona Mix MD Work Phone: [facility] Start: 02-25-2024 End: 02-25-2024 ambulatory NONA Donnie MARIA DEL ROSARIO Not Available Start: 02-25-2024 End: 02-25-2024 Office outpatient visit 15 minutes Nona Mix MD Work Phone: [facility] Comment on above: Rash (Primary Dx) Start: 02-02-2024 End: 02-02-2024 Bamboo flowsheet Delgado Vannessa Brenda-Nossek MATERIALS ASSISTANT[employer] Work Phone: [facility] Start: 02-02-2024 End: 02-02-2024 Bamboo flowsheet Delgado Hurd Brenda-Nossek MATERIALS ASSIST[employer] Work Phone: [facility] Start: 02-02-2024 End: 02-02-2024 Office outpatient visit 40 minutes Delgado Vannessa Brenda-Nossek MATERIALS ASSIST[employer] Work Phone: [facility] Comment on above: Binge eating disorde r (CMS/HCC); Bipolar affective disorder, remission status unspecified (CMS/HCC); High risk medication use Start: 02-02-2024 End: 02-02-2024 ambulatory DELGADO Vannessa BRENDA-NOSSEK Not Available Start: 01-19-2024 End: 01-19-2024 ambulatory MACRINA S SIMON Not Available Start: 01-05-2024 End: 01-05-2024 ambulatory DELGADO M BRENDA-NOSSEK Not Available Start: 12-01-2023 End: 12-01-2023 ambulatory DELGADO M BRENDA-NOSSEK Not Available Start: 11-13-2023 End: 11-13-2023 ambulatory MACRINA S SIMON Not Available Start: 11-10-2023 End: 11-10-2023 ambulatory NONA MIX Not Available Start: 10-30-2023 End: 10-30-2023 ambulatory DELGADO Hurd BRENDA-NOSSEK Not Available Start: 10-29-2023 End: 10-29-2023 ambulatory MACRINA S SIMON Not Available Start: 10-15-2023 End: 10-15-2023 ambulatory MACRINA S SIMON Not Available Start: 10-07-2023 End: 10-07-2023 ambulatory NONA MIX Not Available Start: 09-18-2023 End: 09-18-2023 ambulatory DELGADO Hurd BRENDA-NOSSEK Not Available Start: 08-25-2023 End: 08-25-2023 ambulatory MYRIAM BRITTNEE Not Available Start: 08-06-2023 End: 08-06-2023 ambulatory MACRINA S SIMON Not Available Start: 07-07-2023 End: 07-07-2023 ambulatory MACRINA S SIMON Not Available Start: 07-03-2023 Telephone encounter Shara Aguilera [facility] Start: 06-27-2023 End: 06-27-2023 Evaluation and management of inpatient ELICIAEdvin MCKENZIE [facility] Start: 06-26-2023 End: 06-27-2023 Evaluation and management of inpatient SHAMAR Dima HORACIORAINIldefonso [facility] Start: 06-20-2023 End: 06-20-2023 ambulatory DELGADO Hurd BRENDA-NOSSEK Not Available Start: 12-13-2021 End: 12-14-[address] MYRIAM BEAULIEU Facility:[facility] Start: 11-07-2021 End: 11-08-[address] MYRIAM BEAULIEU Facility:[facility] Start: 07-31-2021 End: 07-31-[address] MYRIAM BEAULIEU Facility:[facility] Procedures Date Procedure Procedure Detail Performing Clinician Start: 04-20-2024 RECURRENT VAGINITIS (HTRX) Myriam Beaulieu DO Work Phone: Start: 04-20-2024 ALL CBC WITH AUTO DIFF Myriam Beaulieu DO Work Phone: Start: 04-20-2024 ALL DEHYDROEPIANDROSTERONE Myriam Beaulieu DO Work Phone: Start: 04-20-2024 ALL DHEA SULFATE Myriam Brittnee DO Work Phone: Start: 04-20-2024 ALL FOLLICLE STIMULA TING HORMONE Myriam Brittnee DO Work Phone: Start: 04-20-2024 ALL LUTEINIZING HORMONE Myriam Brittnee DO Work Phone: Start: 04-20-2024 ALL THYROID STIM HORMONE Myriam Brittnee DO Work Phone: Start: 04-20-2024 ALL THYROXINE (T4) FREE Myriam Brittnee DO Work Phone: Start: 04-20-2024 MLR HEMOGLOBIN A1C Core y Brittnee DO Work Phone: Start: 04-20-2024 TBH PREG QUANT HCG Core y Brittnee DO Work Phone: Start: 03-18-2024 End: 03-18-2024 Psychotherapy w/patient 60 minutes Moderate binge-eating disorder Macrina RODRIGUEZ-Ildefonso Work Phone: Comment on above: Moderate binge-eatin g disorder; Bipolar affective disorder, remission status unspecified ([facility]) Start: 04-29-2023 Mammography Nona Mix MD Work Phone: Start: 04-14-2023 Microscopic observat ion [Identifier] in Cervix by Cyto stain Nona Mix MD Work Phone: Plan of Treatment Date Care Activity Detail Author Start: 04-14-2028 Screening for malign ant neoplasm of cervix [facility] Start: 12-06-2024 Influenza vaccination Influenza Vacc ine (#1) [facility] Comment on above: Postponed from 02/07 (Patient Refused) Start: 07-07-2024 End: 07-07-2024 Telemedicine consultation with patient 07/07/2024 9:00 AM EST Telemedicine [facility] [address] [place] [address] Macrina Montes LISW-S [address] [place], [place] [id number] [facility] Start: 06-26-2024 Adult BMI Screening Adult BMI Screen ing [facility] Start: 06-26-2024 Tobacco Screening Tobacco Screening [facility] Start: 06-14-2024 End: 06-14-2024 Patient encounter procedure 06/14/2024 9:30 AM EST Office Visit [facility] [address] [facility] [address] [place] [address] Delgado Cardona, MATERIALS ASSISTANT[facility] [address] [facility] [address] [place] [address] [facility] Start: 06-10-2024 End: 06-10-2024 Professional / ancillary services management 06/10/2024 2:30 PM EST Ancillary Procedure [facility] [address] [id number] [facility] Start: 06-01-2024 End: 06-01-2024 Professional / ancillary services management 06/01/2024 10:30 AM EST Ancillary Procedure [facility] [address] [facility] [address] [place] [phone] [facility] Start: 05-31-2024 End: 05-31-2024 Telemedicine consultation with patient 05/31/2024 9:30 AM EST Telemedicine [facility] [address] [place] [address] Magen Weaver, MS, RDN, LD, CHES [address] [place], [place] [facility] Start: 05-17-2024 End: 05-17-2024 Clinical Support [facility] Comment on above: Arrived Start: 05-05-2024 End: 05-05-2024 Patient encounter procedure 05/05/2024 8:10 AM EST Office Visit [facility] [address] [place] [phone] Myriam Beaulieu, [address] [facility] [place] [address] [facility] Start: 05-03-2024 End: 05-03-2024 Clinical Support 05/03/2024 9:30 AM EST Clinical Support [facility] [address] [place] [address] Magen Weaver, MS, RDN, LD, CHES [address] [place], [place] [facility] Start: 04-29-2024 Screening for malign ant neoplasm of breast Mammogram [facility] Start: 04-20-2024 End: 04-20-2025 DHEA DHEA Lab Routine PCOS (polycystic ovarian syndrome) Expected: 04/20/2024 (Approximate), Expires: 04/20/2025 [facility] Comment on above: Expected: 04/20/2024 (Approximate), Expires: 04/20/2025 Start: 04-20-2024 End: 04-20-2025 US for US PELVIS-TRANSVAG IF INDICATED Imaging Routine PCOS (polycystic ovarian syndrome) Expected: 04/20/2024 (Approximate), Expires: 04/20/2025 [facility] Comment on above: Expected: 04/20/2024 (Approximate), Expires: 04/20/2025 Start: 04-14-2024 End: 04-14-2024 Patient encounter procedure 04/14/2024 11:00 AM EST Office Visit [facility] [address] [facility] [address] [place] [phone] Delgado Cardona, MATERIALS ASSISTANT-[facility] [address] [facility] [address] [place] [address] [facility] Start: 04-14-2024 End: 04-14-2024 Telemedicine consultation with patient 04/14/2024 9:00 AM EST Telemedicine [facility] [address] [place] [address] Macrina Montes LISW-S [address] [place] [address] [facility] Start: 03-18-2024 End: 10-10-2024 Telemedicine consultation with patient [facility] Comment on above: Arrived Start: 03-17-2024 End: 03-17-2024 Patient encounter procedure 03/17/2024 9:00 AM EDT Office Visit [facility] [address] [place] [address] [place] [address] Delgado Cardona, MATERIALS ASSISTANT[employer] [address] [place] [address] [place] [address] [facility] Start: 03-16-2024 End: 03-16-2024 Patient encounter procedure 03/16/2024 9:30 AM EDT Office Visit [facility] [address] [place] [address] [place] [address] Delgado Cardona, MATERIALS ASSIST[employer] [address] [place] [address] [place] [address] Arrived [facility] Comment on above: Arrived Start: 02-08-2024 Influenza vaccination Influenza Vacc ine (#1) [facility] Start: 02-02-2024 End: 02-02-2024 Patient encounter procedure 02/02/2024 2:00 PM EDT Office Visit [facility] [address] [facility] [address] [place] [address] Delgado Cardona, MATERIALS ASSIST[employer] [address] [place] [address] [place] [address] Binge eating disorder (CMS/HCC); Bipolar affective disorder, remission status unspecified (CMS/HCC); High risk medication use [facility] Comment on above: Binge eating disorde r (CMS/HCC); Bipolar affective disorder, remission status unspecified (CMS/HCC); High risk medication use Start: 02-07-2023 COVID-19 Vaccine ( season) COVID-19 Vaccine () [facility] Start: 02-07-2023 Influenza vaccination Influenza Vacc ine [facility] Start: 09-24-2004 Screening for malign ant neoplasm of cervix Pap Smear [facility] Start: 2002 DTaP,Tdap and Td Vaccines (1 - Tdap) DTaP,Tdap and Td Vaccines (1 - Tdap) [facility] Start: 2001 Adult BMI Follow Up Plan Adult BMI Follow Up Plan [facility] Start: 1995 Depression Screening Depression Scre ening [facility] CBC W Auto Different ial panel - Blood CBC and differential Lab Routine PCOS (polycystic ovarian syndrome) Ordered: 04/20/2024 [facility] Comment on above: Ordered: 04/20/2024 CHLAMYDIA TRACHOMATI S (GENITO/STI) CHLAMYDIA TRACHOMATIS (GENITO/STI) Lab Routine STD exposure Ordered: 04/20/2024 [facility] Comment on above: Ordered: 04/20/2024 DHEA-sulfate DHEA-sulfate Lab Routine PCOS (polycystic ovarian syndrome) Ordered: 04/20/2024 [facility] Comment on above: Ordered: 04/20/2024 Follicle stimulating hormone Follicle stimulating hormone Lab Routine PCOS (polycystic ovarian syndrome) Ordered: 04/20/2024 [facility] Comment on above: Ordered: 04/20/2024 hCG, quantitative, hCG, quantitative, Lab Routine PCOS (polycystic ovarian syndrome) Ordered: 04/20/2024 [facility] Work Phone: Comment on above: Ordered: 04/20/2024 Hemoglobin A1c/Hemoglobin.total in Blood Hemoglobin A1c Lab Routine Vaginal discharge Abnormal uterine bleeding (AUB) Ordered: 04/20/2024 [facility] Comment on above: Ordered: 04/20/2024 Luteinizing hormone Luteinizing hormone Lab Routine PCOS (polycystic ovarian syndrome) Ordered: 04/20/2024 [facility] Comment on above: Ordered: 04/20/2024 Neisseria gonorrhoea e DNA [Presence] in Unspecified specimen by SHUN with probe detection Neisseria gonorrhea DNA probe, direct Lab Routine STD exposure Ordered: 04/20/2024 [facility] Comment on above: Ordered: 04/20/2024 SURESWAB(R) ADVANCED VAGINITIS PLUS, TMA SURESWAB(R) ADVANCED VAGINITIS PLUS, TMA Pathology and Cytology Routine Vaginal discharge Ordered: 04/20/2024 [facility] Comment on above: Ordered: 04/20/2024 Thyrotropin [Units/volume] in Serum or Plasma TSH Lab Routine PCOS (polycystic ovarian syndrome) Ordered: 04/20/2024 [facility] Comment on above: Ordered: 04/20/2024 Thyroxine (T4) free [Mass/volume] in Serum or Plasma T4, free Lab Routine PCOS (polycystic ovarian syndrome) Ordered: 04/20/2024 [facility] Comment on above: Ordered: 04/20/2024 Immunizations Immunization Date Immunization Notes Care Provider [facility] 03-31-2020 influenza, injectabl e, quadrivalent, preservative free Nona Mix MD Work Phone: [facility] 03-31-2020 influenza virus vaccine, unspecified formulation Shara Aguilera [facility] 04-08-2017 influenza, injectabl e, quadrivalent, contains preservative Nona Mix MD Work Phone: [facility] 04-04-2016 influenza, injectabl e, quadrivalent, preservative free Nona Mix MD Work Phone: [facility] Payers Date Payer Category Payer [facility] [id number] 2021 Unknown [id number]. [id number] 1983 Unknown [id number] 2.16.840.1.661042.3.579. 2.593 1983 Unknown [id number] 2.16.840.1.799008.3.579. 2.593 1983 Unknown [id number] 2.16.840.1.046513.3.579. 2.593 1983 Unknown [id number] 2.0.1.124988.3.579. 2.1285 1983 Unknown [id number] 2.840.1.997583.3.579. 2.1285 1983 Unknown [id number] 2.0.1.161342.3.579. 2.1285 1983 Unknown [id number] 2.0.1.560320.3.579. 2.1285 1983 Unknown [id number] .1.857547.3.579. 2.1258 1983 Unknown [id number] .1.189494.3.579. 2.1258 1983 Unknown [id number] .1.961383.3.579. 2.1258 1983 Unknown [id number] 07.25.830.1.406757.3.579. 2.1258 1983 Unknown [id number] .1.792832.3.579. 2.1258 1983 Unknown [id number] .1.806403.3.579. 2.1258 1983 Unknown [id number] .1.830264.3.579. 2.1258 1983 Unknown [id number] 07.25.830.1.760179.3.579. 2.1258 1983 Unknown [id number] .1.445474.3.579. 2.1258 1983 Unknown [id number] 07.25.830.1.294250.3.579. 2.1258 1983 Unknown [id number] 07.25.830.1.368509.3.579. 2.1258 1983 Unknown [id number] 2.16.840.1.919059.3.579. 2.9 1983 Unknown [id number] 2.16.840.1.863362.3.579. 2.1258 1983 Unknown [id number] 2.16.840.1.121345.3.579. 2.1258 1983 Unknown [id number] 2.16.840.1.777354.3.579. 2.1258 1983 Unknown [id number] 2.16.840.1.473527.3.579. 2.1258 1983 Unknown [id number] 2.16.840.1.258090.3.579. 2.1258 1983 Unknown [id number] 2.16.840.1.717500.3.579. 2.1258 1983 Unknown [id number] 2.16.840.1.010857.3.579. 2.1258 1983 Unknown [id number] 2.16.840.1.605264.3.579. 2.1258 1983 Unknown [id number] 2.16.840.1.350362.3.579. 2.1258 1983 Unknown [id number] 2.16.840.1.631926.3.579. 2.9 1959 Unknown [id number] 1959 Unknown [id number] Social History Date Type Detail Facility Start: 05-19-2023 End: 12-01-2023 Tobacco smoking status IDIS Ex-smoker [facility] Work Phone: Start: 06-09-2001 End: 10-07-2008 History of tobacco use Current smoker [facility] Start: 06-09-2001 End: 10-07-2008 History of tobacco use Cigarette Smoker [facility] Start: 05-19-2023 End: 11-09-2023 Cigarettes smoked current (pack per day) - [facility] Start: 05-19-2023 End: 12-01-2023 Tobacco use and exposure Smokeless tobacco non-user [facility] Start: 06-30-2023 Alcohol intake Ex-drinker (finding) [facility] Start: 06-26-2023 End: 11-09-2023 Tobacco use panel [facility] Childcare Unknown [facility] Start: 05-19-[address] [facility] Start: 1985 Sex Assigned At Not on file [facility] Start: 02-02-2024 End: 02-25-2024 Alcoholic beverage intake Current drinker of alcohol (finding) [facility] Do you belong to any clubs or organizations such as rastafarian groups, unions, fraternal or athletic groups, or [...] Comment caffiene- rand om- binges [facility] Clinical Notes 07-03-2023 to 05-25-2024 Telephone Encounter - Nona Mix MD - 05/25/2024 9:47 AM ESTTelephone Encounter - Nona Mix MD - 05/25/2024 9:47 AM Jennifer Bermudez LPN - 05/05/2024 8:10 AM EST Note Date & Type Note Facility 05-25-2024 Telephone encount er Note Approvals with refills [facility] 05-25-2024 Miscellaneous Notes Formattin g of this note might be different from the original. Approvals with refills documented in this encounter [facility] 05-05-2024 History of Presen t illness Narrative Reason for Appointment: Patient ID: Nona Bryant is a 39 y.o. female who presents for No chief complaint on file. Patient presents today via telephone call for a telehealth appointment. Patients Phone #: [phone] (mobile) Current Medications: has a current medication list which includes the following prescription(s): copper, desogestrel-ethinyl estradiol, lamotrigine, lisdexamfetamine, lurasidone, and polyethylene glycol (peg) 3350. Medical History: Active Ambulatory Problems Diagnosis Date Noted Bipolar disorder, unspecified ([facility]) 10/15/2022 Panic attack ([facility]) 10/15/2022 High risk medication use 10/15/2022 Hormone imbalance 08/25/2023 Vaginal dryness 08/25/2023 Contraceptive device, intrauterine 08/25/2023 Sweating abnormality 08/25/2023 Binge eating disorder 10/30/2023 Adjustment disorder ([facility]) 02/25/2024 Mental disorder, not otherwise specified 02/25/2024 Chronic constipation 02/25/2024 Difficulty walking 02/25/2024 Plantar wart, right foot 02/25/2024 Status post ablation of incompetent vein using laser 02/23/2021 Varicose veins of left leg with edema 10/23/2020 Venous hypertension 01/08/2021 Resolved Ambulatory Problems Diagnosis Date Noted No Resolved Ambulatory Problems Past Medical History: Diagnosis Date Bipolar 1 disorder (CMS/HCC) Depressed ([facility]) Gestational diabetes H/O rectal polypectomy Hx of section Hx of colonoscopy Hypertension ([facility]) 12/19/10 only Irritable bowel syndrome with both constipation and diarrhea Family History Problem Relation Name Age of [...] cancer Maternal Grandfather Colon cancer Maternal Grandfather Social History Tobacco Use Smoking status: Former Current packs/day: 0.00 Average packs/day: 1.5 packs/day for 7.3 years (11.0 ttl pk-yrs) Types: Cigarettes Start date: 06/09/2001 Quit date: 10/07/2008 Years since quittin.5 Smokeless tobacco: Never Vaping Use Vaping status: Never Used Substance Use Topics Alcohol use: Yes Alcohol/week: 1.0 standard drink of alcohol Types: 1 Standard drinks or equivalent per week Comment: caffiene- random- binges Drug use: Never Past Surgical History: Procedure Laterality Date SECTION, LOW TRANSVERSE 06/03/2014, 12/19/2010 COLONOSCOPY 2005, 01/2012, 10/2016 COLONOSCOPY 06/2023 IR ABLATION VEIN RFA 02/13/2021 IR ABLATION VEIN RFA Allergies Allergen Reactions Neomycin Hives and Itching Vitals: Estimated body mass index is 32.31 kg/m as calculated from the following: Height as of 02/25/24: 5' 3 . Weight as of 04/20/24: 182 lb 6.4 oz. BP: Patient's last menstrual period was 03/18/2024. Assessment/Plan Encounter Diagnoses Name Primary? Vaginal discharge Insulin resistance Decreased libido Pt was called and reviewed labs and ultrasound with pt in detail. Pt is prediabetic at 5.6% discussed insulin resistance with pt in detail. Pt states discharge stopped after last exam. Discharge restarted on past Friday. Pt describes discharge as black pudding like discharge- discussed copper IUD and keeping apri on board for hormones. Discussed talking with Buderer for compounded cream d/t decreased libido. Today's telehealth visit consisted of spending 10 minutes talking to patient on the phone. Documented by Jovita Bermudez LPN on behalf of: Myriam Beaulieu DO documented in this encounter [facility] 04-20-2024 History of Presen t illness Narrative Reason for Appointment: Patient ID: Nona Bryant is a 39 y.o. female who presents for Vaginal Discharge Patient presents today for Acute Visit. MEDICATIONS Current Outpatient Medications Medication Instructions copper (Paragard) IUD Once desogestrel-ethinyl estradiol (Apri) 0.15-30 MG-MCG tablet 1 tablet, Oral, Daily lamoTRIgine (LAMICTAL) 150 mg, Oral, 2 times daily lisdexamfetamine (VYVANSE) 30 mg, Oral, Every morning lurasidone (LATUDA) 40 mg, Oral, Daily with evening meal polyethylene glycol (PEG) 3350 (GLYCOLAX) 34 g, As needed ALLERGIES Allergies Allergen Reactions Neomycin Hives and Itching PROBLEMS Active Ambulatory Problems Diagnosis Date Noted Bipolar disorder, unspecified ([facility]) 10/15/2022 Panic attack ([facility]) 10/15/2022 High risk medication use 10/15/2022 Hormone imbalance 08/25/2023 Vaginal dryness 08/25/2023 Contraceptive device, intrauterine 08/25/2023 Sweating abnormality 08/25/2023 Binge eating disorder 10/30/2023 Adjustment disorder ([facility]) 02/25/2024 Mental disorder, not otherwise specified 02/25/2024 Chronic constipation 02/25/2024 Difficulty walking 02/25/2024 Plantar wart, right foot 02/25/2024 Status post ablation of incompetent vein using laser 02/23/2021 Varicose veins of left leg with edema 10/23/2020 Venous hypertension 01/08/2021 Resolved Ambulatory Problems Diagnosis Date Noted No Resolved Ambulatory Problems Past Medical History: Diagnosis Date Bipolar 1 disorder ([facility]) Depressed ([facility]) Gestational diabetes H/O rectal polypectomy Hx of section Hx of colonoscopy Hypertension ([facility]) 12/19/10 only Irritable bowel syndrome with both constipation and diarrhea HISTORY PAST MEDICAL HISTORY SOCIAL HISTORY Past Medical History: Diagnosis Date Binge eating disorder Bipolar 1 disorder ([facility]) Depressed ([facility]) Gestational diabetes H/O rectal polypectomy 2011 Hx of section Hx of colonoscopy 2005,2011,2016 Hypertension (CMS/HCC) 12/19/10 only Irritable bowel syndrome with both constipation and diarrhea Panic attack (CMS/HCC) Social History Tobacco Use Smoking status: Former Current packs/day: 0.00 Average packs/day: 1.5 packs/day for 7.3 years (11.0 ttl pk-yrs) Types: Cigarettes Start date: 06/09/2001 Quit date: 10/07/2008 Years since quittin.5 Smokeless tobacco: Never Vaping Use Vaping status: Never Used Substance Use Topics Alcohol use: Yes Alcohol/week: 1.0 standard drink of alcohol Types: 1 Standard drinks or equivalent per week Comment: caffiene- random- binges Drug use: Never FAMILY HISTORY Family History Problem Relation Name Age of [...] cancer Maternal Grandfather Colon cancer Maternal Grandfather SURGICAL HISTORY Past Surgical History: Procedure Laterality Date SECTION, LOW TRANSVERSE 06/03/2014, 12/19/2010 COLONOSCOPY 2005, 01/2012, 10/2016 COLONOSCOPY 06/2023 IR ABLATION VEIN RFA 02/13/2021 IR ABLATION VEIN RFA REVIEW OF SYSTEMS Review of Systems: Review of Systems Constitutional: Negative. HENT: Negative. Eyes: Negative. Respiratory: Negative. Cardiovascular: Negative. Gastrointestinal: Negative. Genitourinary: Positive for menstrual problem and vaginal discharge. Musculoskeletal: Negative. Skin: Negative. Neurological: Negative. All other systems reviewed and are negative. Hematological: Negative. Endocrine: Negative. Allergic/Immunologic: Negative. OBJECTIVE Objective: Physical Exam Constitutional: Appearance: Normal appearance. She is well-developed. Genitourinary: Vulva normal. Cardiovascular: Rate and Rhythm: Normal rate and regular rhythm. Pulmonary: Effort: Pulmonary effort is normal. Breath sounds: Normal breath sounds. Abdominal: General: Bowel sounds are normal. There is no distension. Palpations: Abdomen is soft. Tenderness: There is no abdominal tenderness. There is no guarding or rebound. Musculoskeletal: General: No swelling. Normal range of motion. Right lower leg: No edema. Left lower leg: No edema. Neurological: Mental Status: She is alert and oriented to person, place, and time. Skin: General: Skin is warm and dry. Psychiatric: Mood and Affect: Mood normal. Behavior: Behavior normal. Vitals and nursing note reviewed. Exam conducted with a mechanical sound technician present. Vitals: Estimated body mass index is 32.31 kg/m as calculated from the following: Height as of 02/25/24: 5' 3 . Weight as of this encounter: 182 lb 6.4 oz. BP: 120/82 Patient's last menstrual period was 03/18/2024. ASSESSMENT & PLAN ICD-10-CM 1. Vaginal discharge N89.8 Hemoglobin A1c SURESWAB(R) ADVANCED VAGINITIS PLUS, TMA 2. PCOS (polycystic ovarian syndrome) E28.2 hCG, quantitative, TSH T4, free CBC and differential Follicle stimulating hormone Luteinizing hormone DHEA-sulfate DHEA US PELVIS-TRANSVAG IF INDICATED DHEA 3. Abnormal uterine bleeding (AUB) N93.9 Hemoglobin A1c 4. STD exposure Z20.2 CHLAMYDIA TRACHOMATIS (GENITO/STI) Neisseria gonorrhea DNA probe, direct Pt presents with complaints of dark colored discharge. Pt states has been occurring for four weeks. Pt is currently taking Apri and has Copper IUD. Pt given labs and ultrasound order to have obtained. Cultures obtained without difficulty. Pt to follow up with telehealth to review symptoms, labs and ultrasound results. Documented by Jovita Bermudez LPN on behalf of: Myriam Beaulieu DO documented in this encounter [facility] 04-14-2024 History of Presen t illness Narrative [...] eating disorder Bipolar 1 disorder (CMS/HCC) Depressed ([facility]) Gestational diabetes H/O rectal polypectomy 2011 Hx of section Hx of colonoscopy 2005,2011,2016 Hypertension ([facility]) 12/19/10 only Irritable bowel syndrome with both constipation and diarrhea Panic attack ([facility]) ALLERGIES: Allergies Allergen Reactions Neomycin Hives [...] Depression Father Hussain Weinberg Cholelithiasis Father Hussain Weibnerg Atrial fibrillation Father Hussain Weinberg Thyroid disease Father Hussain Duongll Parkinsonism Father Hussain Weinberg Other (noncancerous brain [...] and Time Memory/Concentration Short term intact and terminal computer operator intact Insight/Judgement Good OBJECTIVE: Visit Vitals Smoking [...] (CMS/HCC)F50.819 Bipolar affective disorder, remission status unspecified (CMS/HCC) High risk medication use Psych Medication List Lamictal 150mg bid -mood Decrease vyvanse 30mg po daily -target BED- 40mg made patient too jittery. Latuda 40mg daily -target depressed mood Refer to boilermaker regarding BED -Patient discussed concerns regarding family hx of Diabetes, and food addiction. Patient was seen Face to Face, Reviewed chart documents and documentation, Visit time : 40min F/U 2 months. documented in this encounter [facility] 03-18-2024 History of Presen t illness Narrative [...] was in her home. Client was in [place]. Client provided a phone number to contact [...] and feedback. 11:09pm-12:09pm documented in this encounter [facility] 03-16-2024 History of Presen t illness Narrative [...] disorder (CMS/HCC) Bipolar 1 disorder (CMS/HCC) Depressed (CMS/HCC) Gestational [...] and Time Memory/Concentration Short term intact and terminal computer operator intact Insight/Judgement Good OBJECTIVE: Visit Vitals Smoking [...] vyvanse for BED documented in this encounter [facility] 02-25-2024 History of Presen t illness Narrative Nona Bryant is a 38 y.o. female presents with chief complaint of Rash (Patient presents today for possible rash due to using old lotion. Patient states that the rash is on her chest, abdomen, legs, and arms. Patient states that this started Friday morning with itching. Now, she has a pins and needles sensation in all the areas listed above.) HPI: HPI History of Present Illness The patient is a 38-year-old female who presents for evaluation of a rash. She developed the rash after using a lotion from her shower kit during a camping trip over the weekend. The rash is primarily located on her chest and the front of her legs, particularly in areas where the lotion was applied most thickly. The most severe part of the rash is around her armpits. She describes the sensation as similar to the relief felt when scratching a mosquito bite. Despite using [id number] hydrocortisone yesterday, she reports no improvement in her condition. She has been trying to avoid further irritation by wearing sleeves to prevent skin rubbing. She notes that she has used this lotion in the past without any issues. SUBJECTIVE: MEDICATIONS: Current Outpatient Medications Medication Instructions copper (Paragard) IUD Intrauterine, Once desogestrel-ethinyl estradiol (Apri) 0.15-30 MG-MCG tablet 1 tablet, Oral, Daily, Take 1 tablet by mouth daily lamoTRIgine (LAMICTAL) 150 mg, Oral, 2 times daily lisdexamfetamine (VYVANSE) 30 mg, Oral, Every morning lurasidone (LATUDA) 40 mg, Oral, Daily with evening meal polyethylene glycol (PEG) 3350 (GLYCOLAX) 34 g, Oral, Daily ALLERGIES: Allergies Allergen Reactions Neomycin Hives and Itching Neomycin-Bacitracin Zn-Polymyx Rash SURGICAL HISTORY: Past Surgical History: Procedure Laterality Date SECTION, LOW TRANSVERSE 06/03/2014, 12/19/2010 COLONOSCOPY 2005, 01/2012, 10/2016 COLONOSCOPY 06/2023 IR ABLATION VEIN RFA 02/13/2021 IR ABLATION VEIN RFA FAMILY HISTORY: Family History Problem Relation Name Age of Onset Atrial fibrillation Mother Amrce Diabetes Mother Marce Thyroid disease Mother Marce Parkinsonism Mother Marce Stroke Mother Marce Other (chronic inflammatory demyelinating polyneuropathy) Mother Marce Depression Mother Marce Coronary artery disease Father Hussain Lenard Depression Father Hussain Lenard Cholelithiasis Father Hussain Duongll Atrial fibrillation Father Hussain Lenard Thyroid disease Father Hussain Lenard Parkinsonism Father Hussain Lenard Other (noncancerous brain tumor) Father Hussain Lenard agent orange exposure Other (htn) Father Hussain Lenard Alcohol abuse Father Hussain Lenard Skin cancer Maternal Grandfather Colon cancer Maternal Grandfather SOCIAL HISTORY: Social History Tobacco Use Smoking status: Former Current packs/day: 0.00 Average packs/day: 1.5 packs/day for 7.3 years (11.0 ttl pk-yrs) Types: Cigarettes Start date: 06/09/2001 Quit date: 10/07/2008 Years since quittin.3 Smokeless tobacco: Never Vaping Use Vaping status: Never Used Substance Use Topics Alcohol use: Yes Alcohol/week: 1.0 standard drink of alcohol Types: 1 Standard drinks or equivalent per week Comment: Not every week Drug use: Never Depression: Not at risk (02/02/2024) PHQ-2 PHQ-2 Score: 0 REVIEW OF SYMPTOMS: Review of Systems OBJECTIVE: Visit Vitals BP 126/88 (BP Location: Left arm, Patient Position: Sitting, BP Cuff Size: Adult) Pulse 76 Resp 18 Ht 5' 3 Wt 182 lb 12.8 oz SpO2 99% BMI 32.38 kg/m Smoking Status Former BSA 1.92 m Physical Exam Constitutional: Appearance: Normal appearance. She is normal weight. Musculoskeletal: Cervical back: Normal range of motion and neck supple. Skin: General: Skin is warm and dry. Comments: Rough bumpy rash on arm and neck and trunk Neurological: General: No focal deficit present. Mental Status: She is alert and oriented to person, place, and time. Mental status is at baseline. Psychiatric: Mood and Affect: Mood normal. Behavior: Behavior normal. Thought Content: Thought content normal. Judgment: Judgment normal. ASSESSMENT AND PLAN: Assessment/Plan No follow-ups on file. Assessment & Plan 1. Allergic Dermatitis. The patient's symptoms are consistent with an allergic reaction, likely triggered by a lotion used over the weekend. She is advised to discontinue the use of the current lotion. A prescription for Zyrtec 10 mg, to be taken once daily until the rash improves, has been sent to her pharmacy. Additionally, a stronger steroid cream than 1% hydrocortisone has been prescribed for use as needed for itching. She is also advised to take shorter, cooler showers and to avoid soaps or lotions with perfumes or dyes, opting instead for white, non-scented products. She should refrain from scratching the affected areas to prevent further irritation. documented in this encounter [facility] 02-02-2024 History of Presen t illness Narrative Images from the original note were not included. Nona Braynt is a 38 y.o. female presents for Medication Management. HPI: Patient is here for medication follow up. This is a followup to see how vyvanse is helping with BED. Started feeling hungry-where before was eating excessive amounts in am, making better food choices. Has had two bingeing episodes. No longer hiding food. Mood is reported as not having depression. Anxiety related to financial difficulties. Medication compliant. No reported side effects. Denies abuse of substances. Medical problems since last visit. Has lost 5lbs. Bowels are Improved. Psychosocial stressors include financial difficulties. SUBJECTIVE: PAST MEDICAL HISTORY: Past Medical History: Diagnosis Date Binge eating disorder ([facility]) Bipolar 1 disorder ([facility] Depressed ([facility]) Gestational diabetes H/O rectal polypectomy 2011 Hx of section Hx of colonoscopy 2005,2011,2016 Hypertension ([facility]) 12/19/10 only Irritable bowel syndrome with both constipation and diarrhea Panic attack ([facility]) ALLERGIES: Allergies Allergen Reactions Bacitracin-Polymyxin B Other Reaction(s): Unknown Neomycin Hives and Itching Neomycin-Bacitracin Zn-Polymyx Rash [...] date: 06/09/2001 Quit date: 10/07/2008 Years since quittin.3 Smokeless tobacco: Never Vaping Use Vaping status: Never Used Substance Use Topics Alcohol use: Yes Alcohol/week: 1.0 standard drink of alcohol Types: 1 Standard drinks or equivalent per week Comment: Not every week Drug use: Never Depression: Not at risk (01/05/2024) PHQ-2 PHQ-2 Score: 0 REVIEW OF SYMPTOMS - MENTAL STATUS EXAM Appearance Appearance: Casual dress, normal grooming and hygiene Attitude Attitude: Cooperative, conversant, engaged, and with good eye contact. Behavior Cooperative, conversant, engaged, and with good eye contact. Speech Normal, clear, regular rate, rhythm and volume Affect full affect appropriate with mood Mood Anxious Thought Process Organized and Clear Thought Content No Suicidal Ideation and No Homicidal ideation Perception No perceptual abnormalities noted Orientation Appropriate to age, Person, Place, and Time Memory/Concentration Short term intact and half-way intact Insight/Judgement Good OBJECTIVE: Visit Vitals Smoking [...] 10/28/2022 ASSESSMENT AND PLAN: Assessment/Plan Assess/Plan SmartLinks: Diagnoses and all orders for this visit: Binge eating disorder (CMS/HCC) Bipolar affective disorder, remission status unspecified (CMS/HCC) High risk medication use Psych Medication List Lamictal 150mg bid -mood Vyvanse 30mg po daily -target BED- assess next visit to see how anxiety is and evaluate Latuda 40mg daily -depressed mood Patient was seen Face to Face, Reviewed chart documents and documentation, Visit time : 40min F/U 6 weeks documented in this encounter [facility] 07-03-2023 Miscellaneous Notes Formattin g of this note might be different from the original. ----- Message from Shamar Raza DO sent at 07/03/2023 11:48 AM EST ----- Regarding: RE: Colonoscopy Recall Yes ----- Message ----- From: Shara Aguilera CMA Sent: 07/03/2023 11:45 AM EST To: Shamar Raza DO Subject: Colonoscopy Recall Hello, You performed this patient's colonoscopy on 06/26/23 but did not indicate when this patient should come back for another colonoscopy. Would you like her to come back in 10 years as it was normal? Thank you, Shara Recall was put in patient's chart. documented in this encounter [facility] 07-03-2023 Telephone encount er Note ----- Message from Shamar Raza DO sent at 07/03/2023 11:48 AM EST ----- Regarding: RE: Colonoscopy Recall Yes ----- Message ----- From: Shara Aguilera CMA Sent: 07/03/2023 11:45 AM EST To: Shamar Raza DO Subject: Colonoscopy Recall Hello, You performed this patient's colonoscopy on 06/26/23 but did not indicate when this patient should come back for another colonoscopy. Would you like her to come back in 10 years as it was normal? Thank you, Shara [facility] 07-03-2023 Telephone encount er Note Recall was put in patient's chart. [facility] Evaluation note Diagnosis Moderate binge-eating disorder- Primary [facility] Diagnosis Moderate binge-eating disorder Bipolar affective disorder, remission status unspecified (CMS/HCC) [facility] Diagnosis Bipolar disorder in partial remission, most recent episode unspecified type (CMS/HCC) Bipolar disorder, current episode mixed, moderate (CMS/HCC) Moderate binge-eating disorder [facility] Diagnosis Vaginal discharge Leukorrhea, not specified as infective PCOS (polycystic ovarian syndrome) Polycystic ovaries Abnormal uterine bleeding (AUB) STD exposure [facility] Diagnosis Vaginal discharge Leukorrhea, not specified as infective Insulin resistance Other abnormal glucose Decreased libido [facility] Diagnosis Rash- Primary Rash and other nonspecific skin eruption [facility] Diagnosis Moderate binge-eating disorder Bipolar disorder in partial remission, most recent episode unspecified type (CMS/HCC) Bipolar disorder, current episode mixed, moderate (CMS/HCC) [facility] Diagnosis Family planning- Primary Other general counseling and advice for contraceptive management [facility] Diagnosis Binge eating disorder (CMS/HCC) Bipolar affective disorder, remission status unspecified (CMS/HCC) High risk medication use [facility]ructionsNot on filedocumented in [facility] Purpose Family History No Family History Records FoundNo Family History Records FoundNo Family History Records Found Advance Directives No Advanced Directives Records FoundNo Advanced Directives Records FoundNo Advanced Directives Records Found Reason for Referral Specialty Diagnoses / Procedures Referred By Lauren rm Referred To Contact Diagnoses Binge eating disorder (CMS/HCC) Delgado Cardona, MATERIALS ASSISTANT[employer] [address] [place] [address] Referral ID Status Reason Start Date Expiration Date Visits Re quested Visits Authorized [id number] Closed 1 1 Additional Source Comments INFORMATION SOURCE (unrecogn ized section and content) DATE CREATED AUTHOR 12/25/2021 [facility] DATE CREATED AUTHOR AUTHOR'S ORGANIZ ATION 07/06/2023 [facility] DATE CREATED AUTHOR AUTHOR'S ORGANIZ ATION 06/02/2024 [facility] Care Teams (unrecognized sec tion and content) [employer]ellite Project Site Monitor Relationship Specialty Start Date End Date Nona Mix MD [address] [place] [address] PCP - General Family Medicine 11/08/20 [employer] Site Monitor Relationship Specialty Start Date End Date Delgado Cardona MATERIALS ASSISTANT[employer] [address] [facility] [address] [place] [address] PCP - [employer] 01/07/22 Nona Mix MD [address] [place] [address] PCP - General Family Medicine 11/14/22 Delgado Cardona MATERIALS ASSISTANT[employer] [address] [place] [facility] [address] [place] [address] Nurse Practitioner Behavioral Health 11/14/22 [employer] Project Site Monitor Relationship Specialty Start Date End Date Delgado Cardona MATERIALS ASSISTANT[employer] [address] [place] [facility] [address] [place] [address] PCP - [employer] 01/07/22 Nona Mix MD [address] [place] [address] PCP - General Family Medicine 11/14/22 Delgado Cardona MATERIALS ASSISTANT[employer] [address] [place] [facility] [address] [place] [address] Nurse Practitioner Behavioral Health 11/14/22 [employer]ellite Project Site Monitor Relationship Specialty Start Date End Date Delgado Cardona MATERIALS ASSISTANT[employer] [address] [facility] [address] [place] [address] PCP - [employer] 01/07/22 Nona Mix MD [address] [place] [facility] [place] [address] PCP - General Family Medicine 11/14/22 Delgado Cardona, MATERIALS ASSISTANT[employer] [address] [facility] [address] [place] [address] Nurse Practitioner Behavioral Health 11/14/22 [employer]ellite Project Site Monitor Relationship Specialty Start Date End Date Delgado Cardona MATERIALS ASSISTANT[employer] [address] [facility] [address] [place] [address] PCP - [employer] 01/07/22 Nona Mix MD [address] [place] [facility] [place] [address] PCP - General Family Medicine 11/14/22 Delgado Cardona, MATERIALS ASSISTANT[employer] [address] [facility] [address] [place] [address] Nurse Practitioner Behavioral Health 11/14/22 Satellite Project Site Monitor Relationship Specialty Start Date End Date Delgado Cardona, MATERIALS ASSISTANT[employer] [address] [facility] [address] [place] [address] PCP - [employer] 01/07/22 Nona Mix MD [address] [place] [facility] [address] PCP - General Family Medicine 11/14/22 Delgado Cardona, MATERIALS ASSISTANT[employer] [address] [facility] [address] [place] [address] Nurse Practitioner Behavioral Health 11/14/22 Satellite Project Site Monitor Relationship Specialty Start Date End Date Delgado Cardona, MATERIALS ASSISTANT-[employer] [address] [facility] [address] [place] [address] PCP - [employer] 01/07/22 Nona Mix MD [address] [place] [address] PCP - General Family Medicine 11/14/22 Delgado Cardona, MATERIALS ASSISTANT[employer] [address] [facility] [address] [place] [address] Nurse Practitioner Behavioral Health 11/14/22 Satellite Project Site Monitor Relationship Specialty Start Date End Date Delgado Cardona, MATERIALS ASSISTANT[employer] [address] [facility] [address] [place] [address] PCP - [employer] 01/07/22 Nona Mix MD [address] [place] [address] PCP - General Family Medicine 11/14/22 Delgado Cardona, MATERIALS ASSISTANT[employer] [address] [facility] [address] [place] [address] Nurse Practitioner Behavioral Health 11/14/22 Satellite Project Site Monitor Relationship Specialty Start Date End Date Delgado Cardona, MATERIALS ASSISTANT[employer] [address] [facility] [address] [place] [address] PCP - [employer] 01/07/22 Nona Mix MD [address] [place] [address] PCP - General Family Medicine 11/14/22 Delgado Cardona, [employer]ERIALS ASSIST[employer] [address] [facility] [address] [place] [address] Nurse Practitioner Behavioral Health 11/14/22 Satellite Project Site Monitor Relationship Specialty Start Date End Date Delgado Cardona MATERIALS ASSISTANT[employer] [address] [facility] [address] [place] [address] PCP - [employer] 01/07/22 Nona Mix MD [address] [place] [address] PCP - General Family Medicine 11/14/22 Delgado Cardona, [employer]S ASSIST[employer] [address] [facility] [address] [place] [address] Nurse Practitioner Behavioral Health 11/14/22 Satellite Project Site Monitor Relationship Specialty Start Date End Date Delgado Cardona MATERIALS ASSISTANT[employer] [address] [facility] [address] [place] [address] PCP - [employer] 01/07/22 Nona Mix MD [address] [place] [address] PCP - General Family Medicine 11/14/22 Delgado Cardona, [employer]S ASSIST[employer] [address] [facility] [address] [place] [address] Nurse Practitioner Behavioral Health 11/14/22 Satellite Project Site Monitor Relationship Specialty Start Date End Date Delgado Cardona, MATERIALS ASSISTANT-[facility] [address] [facility] [address] [place] [address] PCP - [employer] 01/07/22 Nona Mix MD [address] [place] [address] PCP - General Family Medicine 11/14/22 Delgado Cardona, [facility] [address] [facility] [address] [place] [address] Nurse Practitioner Behavioral Health 11/14/22 Satellite Project Site Monitor Relationship Specialty Start Date End Date Delgado Cardona, MATERIALS ASSISTANT-[facility] [address] [facility] [address] [place] [address] PCP - [employer] 01/07/22 Nona Mix MD [address] [place] [address] PCP - General Family Medicine 11/14/22 Delgado Cardona, MATERIALS ASSISTANT-[facility] [address] [facility] [address] [place] [address] Nurse Practitioner Behavioral Health 11/14/22 Satellite Project Site Monitor Relationship Specialty Start Date End Date Delgado Cardona, MATERIALS ASSISTANT-[facility] [address] [facility] [address] [place] [address] PCP - [employer] 01/07/22 Nona Mix MD [address] [facility] [place] [address] PCP - General Family Medicine 11/14/22 Delgado Cardona, [facility] [address] [facility] [address] [place] [address] Nurse Practitioner Behavioral Health 11/14/22 Satellite Project Site Monitor Relationship Specialty Start Date End Date Delgado Cardona, [facility] [address] [facility] [address] [place] [address] PCP [facility] 01/07/22 Nona Mix MD [address] [facility] [place] [address] PCP - [facility] Family Medicine 11/14/22 Delgado Cardona, [facility] [address] [facility] [address] [place] [address] Nurse Practitioner Behavioral Health 11/14/22 Reason for Visit (unrecogniz ed section and content) Reason Comments Med Management Follow-up Wants to discuss [employer] brothers feels it needs increased. Its not really helping the binge eating. Its helping the frequency of bingeing but not helping the size of the binge when bingeing. Reason Comments counseling session Reason Comments Med Management Follow-up Reason Comments Vaginal Discharge Reason Comments Telehealth decreased libido Reason Comments Rash Patient presents tod ay for possible rash due to using old lotion. Patient states that the rash is on her chest, abdomen, legs, and arms. Patient states that this started Friday morning with itching. Now, she has a pins and needles sensation in all the areas listed above. Reason Onset Date Comments Med Refill 05/25/2024 Reason Comments Med Management Follow-up Feels Mod[employer] has si gnificantly helped. FOR RECORDS PERTAINING TO PATIENTS WHO ARE [...] BE BASED ON THE PRIMARY CLINICAL RECORDS. [facility]. provides no warranty or guarantee of the accuracy or completeness of information in this document.
[2024-06-13 02:08] LABS: Free Testosterone(Direct) 1.2 pg/mL (0.0-4.2); Testosterone 19 ng/dL (4-50)
== END 2024-06-11 12:09 | disposition home or self-care (01) ==
LOC: LAB 12:09
PROVIDERS: PCP Family Medicine; Visit Provider Obstetrics & Gynecology
DX: E34.9 Endocrine disorder, unspecified (principal)
CPT/HCPCS: 36415; 84402; 84403